=== PATIENT | male | born 1935 | race Caucasian/White ===

== ENCOUNTER 2016-12-15 16:44 | Emergency (ER) | payer OTHER, BC ==
[2016-12-15 16:57] VITALS: TEMP 97.5; BMI 28.2
[2016-12-15] MEDS ORDERED: HEMOQUE TEST 1 EACH EACH ONE (17:01)
[2016-12-15] MEDS ORDERED: SODIUM CHLORIDE 250 ML IV STA (17:12)
[2016-12-15 17:25] LABS: MCHC 32.8 g/dl (32.0-35.9); MEAN CELL VOLUME 82.5 fl (80-96); MEAN PLT VOLUME 8.3 fl (7.5-11.1); PLATELET COUNT 259 K/MM3 (134-434); RDW 14.4 % (11.9-15.9)
[2016-12-15 17:39] LABS: ALBUMIN 4.4 g/dl (3.5-5.0); BILIRUBIN,TOTAL 0.5 mg/dl (0.2-1.0); CALCIUM 9.9 mg/dl (8.4-10.2); CREATININE 1.3 mg/dl (0.6-1.3); TOT PROT 7.5 g/dl (6.4-8.3)
[2016-12-15 17:39] LABS: URINE APPEARANCE Clear; URINE BILIRUBIN Negative (NEGATIVE); URINE BLOOD Trace-intact (NEGATIVE); URINE GLUCOSE (UA) Negative (NEGATIVE); URINE KETONE Negative (NEGATIVE); URINE LEUK ESTERASE Negative (NEGATIVE); URINE NITRITE Negative (NEGATIVE); URINE PROTEIN Negative (NEGATIVE); URINE UROBILINOGEN 0.2 E.U/dl (0.2-1.0)
[2016-12-15 17:40] LABS: URINE COLOR YELLOW
--- NOTE | 2016-12-15 17:47 | PDOC ---
[id number] is an 81 year old male who presents to the ED complaining of lightheadedness and constipation for a few days. He states he feels lightheaded constantly when laying down and standing up. The patient states two weeks ago he had bronchitis and was given a Z pack from his PCP. He states he finished the antibiotics in five days on 12/07/16, and started to have a lot of diarrhea. His bronchitis had resolved. He reports his PCP informed him to take probiotics , which resolved the diarrhea. The patient reports he is now constipated and has had no relief with Miralex. The patient states he just does not feel well and presents to the ED for evaluation of his constipation and lightheadedness. The patient denies dysuria, frequency, hematuria The patient denies vomiting The patient denies fever, chest pain, SOB 12/15/16 18:48 <Autumn Strickland - Last Filed: 12/15/16 18:48> <Sabas Foley - Last Filed: 12/17/16 08:23> - General Chief Complaint: Lightheaded Stated Complaint: dizziness Time Seen by Provider: 12/15/16 16:53 Past History <Autumn Strickland - Last Filed: 12/15/16 18:48> - Past Medical History Anemia: No Asthma: No Cancer: No Cardiac Disorders: No CVA: No COPD: No CHF: No Dementia: No Diabetes: Yes GI Disorders: Yes (GERD OCCASIONALLY) Disorders: No HTN: Yes Hypercholesterolemia: No Liver Disease: No Seizures: No Thyroid Disease: No - Surgical History Abdominal Surgery: No Appendectomy: No Cardiac Surgery: No Cholecystectomy: No Lung Surgery: No Neurologic Surgery: No Orthopedic Surgery: No (RIGHT INDEX FINGER LACERATION WITH OSTEOMYLITIS) - Psycho/Social/Smoking Cessation Hx Anxiety: No Suicidal Ideation: No Smoking History: Never smoked Have you smoked in the past 12 months: No Information on smoking cessation initiated: No Hx Alcohol Use: No Drug/Substance Use Hx: No Substance Use Type: None Hx Substance Use Treatment: No <Sabas Foley - Last Filed: 12/17/16 08:23> - Past Medical History Allergies/Adverse Reactions: Allergies Allergy/AdvReac Type Severity Reaction Status Date / Time No Known Drug Allergies Allergy Verified 11/04/15 08:55 Home Medications: Ambulatory Orders Amlodipine Besylate [Norvasc -] 10 mg PO DAILY 10/09/13 Olmesartan/Hydrochlorothiazide [Benicar Hct 40-12.5 mg Tablet] 1 each PO DAILY 10/29/15 Lorazepam [Ativan] 0.5 mg PO TID PRN #20 tablet MDD 3 12/15/16 Simvastatin 0 mg PO DAILY 12/15/16 Review of Systems - Review of Systems Able to Perform ROS?: Yes Comments:: 12/15/16 17:52 CONSTITUTIONAL: Absent: fever, chills, diaphoresis, generalized weakness, malaise, loss of appetite HEENT: Absent: rhinorrhea, nasal congestion, throat pain, throat swelling, difficulty swallowing, mouth swelling, ear pain, eye pain, visual Changes CARDIOVASCULAR: Absent: chest pain, syncope, palpitations, irregular heart rate, lightheadedness , peripheral edema RESPIRATORY: Absent: cough, shortness of breath, dyspnea with exertion, orthopnea, wheezing, stridor, hemoptysis GASTROINTESTINAL: +Constipation. Absent: abdominal distension, nausea, vomiting, diarrhea, melena , hematochezia GENITOURINARY: Absent: dysuria, frequency, urgency, hesitancy, hematuria, flank pain, genital pain MUSCULOSKELETAL: Absent: myalgia, arthralgia, joint swelling SKIN: Absent: rash, itching, pallor NEUROLOGIC: +Lightheadedness. Absent: headache, focal weakness or paresthesias, unsteady gait, seizure, mental status changes, bladder or bowel incontinence PSYCHIATRIC: Absent: anxiety, depression, suicidal or homicidal ideation, hallucinations. <Autumn Strickland - Last Filed: 12/15/16 18:48> *Physical Exam - Vital Signs Last Vital Signs Temp Pulse Resp BP Pulse Ox 97.5 F L 100 H 20 158/82 100 12/15/16 16:53 12/15/16 16:53 12/15/16 16:53 12/15/16 16:53 12/15/16 16:53 <Autumn Strickland - Last Filed: 12/15/16 18:48> - Vital Signs Last Vital Signs Temp Pulse Resp BP Pulse Ox 97.5 F L 100 H 20 158/82 100 12/15/16 16:53 12/15/16 16:53 12/15/16 16:53 12/15/16 16:53 12/15/16 16:53 <Sabas Foley - Last Filed: 12/17/16 08:23> ED Treatment Course - LABORATORY CBC & Chemistry Diagram: 12/15/16 17:16 12/15/16 17:16 - ADDITIONAL ORDERS Additional order review: Laboratory Results 12/15/16 12/15/16 17:21 17:16 Sodium 138 Potassium 4.1 Chloride 99 Carbon Dioxide 26 Anion Gap 13 BUN 27 H Creatinine 1.3 Creat Clearance w eGFR 53.12 Random Glucose 113 H Calcium 9.9 Total Bilirubin 0.5 AST 28 ALT 22 Alkaline Phosphatase 62 Total Protein 7.5 Albumin 4.4 Urine Color Yellow Urine Appearance Clear Urine pH 7.0 Ur Specific [place] 1.015 Urine Protein Negative Urine Glucose (UA) Negative Urine Ketones Negative Urine Blood Trace-intact Urine Nitrite Negative Urine Bilirubin Negative Urine Urobilinogen 0.2 e.u/dl Ur Leukocyte Esterase Negative 12/15/16 17:16 RBC 4.90 MCV 82.5 MCHC 32.8 RDW 14.4 MPV 8.3 Neutrophils % 53.7 Lymphocytes % 34.5 Monocytes % 10.6 H Eosinophils % 0.7 Basophils % 0.5 - Medications Given in the ED: ED Medications Discontinued Medications Generic Name Dose Route Start Last Admin Trade Name Mario PRN Reason Stop Dose Admin Sodium Chloride 250 mls @ 500 mls/hr 12/15/16 17:12 12/15/16 17:25 Normal Saline - IV 12/15/16 17:41 500 mls/hr ASDIR STA Administration <Autumn Strickland - Last Filed: 12/15/16 18:48> - LABORATORY CBC & Chemistry Diagram: 12/15/16 17:16 12/15/16 17:16 - ADDITIONAL ORDERS Additional order review: Laboratory Results 12/15/16 17:21 Urine Color Yellow Urine Appearance Clear Urine pH 7.0 Ur Specific [place] 1.015 Urine Protein Negative Urine Glucose (UA) Negative Urine Ketones Negative Urine Blood Trace-intact Urine Nitrite Negative Urine Bilirubin Negative Urine Urobilinogen 0.2 e.u/dl Ur Leukocyte Esterase Negative 12/15/16 17:16 RBC 4.90 MCV 82.5 MCHC 32.8 RDW 14.4 MPV 8.3 Neutrophils % 53.7 Lymphocytes % 34.5 Monocytes % 10.6 H Eosinophils % 0.7 Basophils % 0.5 - RADIOLOGY Radiology Studies Ordered: Category Date Time Status CHEST X-RAY PORTABLE* [RAD] Stat Radiology 12/15/16 17:10 Taken <Sabas Foley - Last Filed: 12/17/16 08:23> Medical Decision Making - Medical Decision Making 12/15/16 17:55 Physical exam: Alert and oriented well-developed and well-nourished no acute distress cooperative. However, appears extremely anxious and admits feeling nervous and shaky frequently, without any nonstress or anxiety precipitating factors of which she is aware Afebrile, vital signs normal No pallor or icterus. PERRLA, fundi benign, ENT clear Neck supple without bruit mass or nodes Chest clear to P&A with full breath sounds throughout bilaterally. No wheezes rales or rhonchi CV S1 and S2 distant without murmur rub or gallop pulses full and symmetric no JVD or edema no bruits Abdomen mildly distended, normal bowel sounds, soft without mass tenderness organomegaly. No CVAT exam testes descended bilaterally, without mass or tenderness, no urethral discharge, no hernias Rectal exam: No masses or tenderness. Prostate 2+ enlarged, firm, nontender, without nodules. Small amount of light brown stool in the ampulla, sent for guaiac analysis Neurological C2 to 12 intact. Strength full and symmetric. No focal sensory or motor deficits. Gait stable and unimpaired Extremities no CCE Skin clear, no rash, adequate turgor and what mucous membranes Impression: The patient symptoms are extremely vague, upon detailed questioning there is no vertigo, dizziness, or true lightheadedness, with the patient seemingly using these terms to try to describe just not feeling well. In particular, he denies any orthostatic component, denies any unsteadiness on his feet, denies the room spinning or dizziness with head movement or sudden change in body position. It seems that his multiple, poorly categorized symptoms, including insomnia and nervousness when trying to sleep, may all be due to anxiety. He appears physically well Plan: EKG and enzymes to check for occult cardiac disease, CBC and chemistries, urinalysis to rule out occult infection, further evaluation depending on results. Consider a trial of low-dose anxiolytic if medical evaluation proves unrevealing. 12/15/16 18:26 Chest x-ray: Clear EKG: Normal sinus rhythm 80/m normal axes and intervals. 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 No acute ST elevations or depressions which would signify acute ischemia. CBC and chemistries, as well as cardiac enzymes, were normal. Of note was a glucose of 113 despite not taking his metformin today. 12/15/16 19:34 Patient feels much better after administration of anxiolytic. He states that he is more relaxed and not shaking any more. However, he is complaining about his stomach "growling" but denies any maritza pain. 12/17/16 08:23 <Sabas Foley - Last Filed: 12/17/16 08:23> *DC/Admit/Observation/Transfer - Attestations Scribe Attestion: 12/15/16 17:52 Documentation prepared by Autumn Strickland, acting as medical doctor nuclear medicine for Sabas Mcqueen MD/DO. <Autumn Strickland - Last Filed: 12/15/16 18:48> <Sabas Foley - Last Filed: 12/17/16 08:23> Diagnosis at time of Disposition: Irritable bowel syndrome Qualifiers: Irritable bowel syndrome type: with constipation Qualified Code(s): K58.9 - Irritable bowel syndrome without diarrhea - Discharge Dispostion Disposition: HOME Condition at time of disposition: Stable - Prescriptions Prescriptions: Lorazepam [Ativan] 0.5 mg PO TID PRN #20 tablet MDD 3 PRN Reason: nervousness, sleeplessness - Patient Instructions Printed Discharge Instructions: DI for Irritable Bowel Syndrome Additional Instructions: MiraLAX, probiotic as directed Follow-up with your primary physician Dr. Vanessa See Dr. Hua as scheduled
[2016-12-15] MEDS ORDERED: LORazepam 0.5 MG TABLET PO ONE (18:03)
[2016-12-15] MEDS ORDERED: LORazepam 0.5 MG TABLET ONE (18:09)
[2016-12-15 18:15] LABS: CPK(DFH) 120 IU/L (38-174)
[2016-12-15 18:29] LABS: TROPONIN I (DFP) < 0.03 ng/ml (0.03-0.50)
[2016-12-15] MEDS ORDERED: PANTOPRAZOLE SODIUM 40 MG in SODIUM CHLORIDE 100 ML IVPB ONE (19:32)
[2016-12-15] MEDS ORDERED: HYOSCYAMINE SULFATE 0.125 MG *ODT PO ONE (19:33)
[2016-12-15] MEDS ORDERED: MAG HYDROX/AL HYDROX/SIMETH 30 ML UNIT-DOSE CUP PO ONE (19:33)
[2016-12-15] MEDS ORDERED: PANTOPRAZOLE SODIUM 40 MG VIAL ONE (19:36)
[2016-12-15] MEDS ORDERED: MAG HYDROX/AL HYDROX/SIMETH 30 ML UNIT-DOSE CUP ONE (19:36)
[2016-12-15] MEDS ORDERED: HYOSCYAMINE SULFATE 0.125 MG *ODT ONE (19:36)
[2016-12-15 20:19] VITALS: BP 130/77; PULSE 85
--- NOTE | 2016-12-16 13:46 | EKG ---
Test Reason : Blood Pressure : / mmHG Vent. Rate : 080 BPM Atrial Rate : 080 BPM P-R Int : 182 ms QRS Dur : 082 ms QT Int : 384 ms P-R-T Axes : 079 004 044 degrees QTc Int : 442 ms SINUS RHYTHM POSSIBLE LEFT ATRIAL ENLARGEMENT NO PREVIOUS ECGS AVAILABLE Confirmed by PATTI GARCIA MD ([id number]) on 12/16/2016 1:46:29 PM Referred By: DR SANCHEZ Confirmed By:PATTI GARCIA MD
== END 2016-12-15 20:23 | disposition home or self-care (01) ==
LOC: FER 16:44
PROC: 3E023GC Introduction of Other Therapeutic Substance into Muscle, Percutaneous Approach (ICD-10-PCS; principal; 2016-12-15)
PROC: 3E0337Z Introduction of Electrolytic and Water Balance Substance into Peripheral Vein, Percutaneous Approach (ICD-10-PCS; 2016-12-15)
DX: K58.9 Irritable bowel syndrome, unspecified (principal); K21.9 Gastro-esophageal reflux disease without esophagitis; I10 Essential (primary) hypertension
CPT/HCPCS: 36415; 70450-TC; 71010-TC; 80053; 81003; 82272; 82550; 84484; 85025; 93005; 96361; 96365; 99283-25

== ENCOUNTER 2018-08-11 08:39 | Inpatient (IN) | payer OTHER, BC ==
[2018-08-02 10:54] VITALS: BMI 28.3
--- NOTE | 2018-08-11 07:45 | HP ---
Admitting History and Physical - Admission Chief Complaint: Right hip osteoarthritis x years History of Present Illness: 82 year old male presents today in regard to his right hip. Longstanding history of right hip osteoarthritis. Patient complains of pain, limited ROM, difficulty ambulating and difficulty with ADLs. Patient has failed conservative treatment measures including PO medications, activity modification, injections and exercise program. At this point, patient would like to proceed with surgical intervention - right total hip arthroplasty, MAKOplasty. History Source: Patient - Past Medical History Cardiovascular: Yes: HTN Endocrine: Yes: Diabetes Mellitus - Smoking History Smoking history: Never smoked Have you smoked in the past 12 months: No - Alcohol/Substance Use Hx Alcohol Use: No Home Medications - Allergies Allergies/Adverse Reactions: Allergies Allergy/AdvReac Type Severity Reaction Status Date / Time No Known Drug Allergies Allergy Verified 11/04/15 08:55 - Home Medications Home Medications: Ambulatory Orders Amlodipine Besylate [Norvasc -] 10 mg PO DAILY 10/09/13 Olmesartan/Hydrochlorothiazide [Benicar Hct 40-12.5 mg Tablet] 1 each PO DAILY 10/29/15 Metformin HCl [Metformin HCl ER] 500 mg PO HS 08/02/18 Review of Systems - Review of Systems Musculoskeletal: reports: Decreased ROM (right hip), Joint Pain (right hip) Physical Examination Constitutional: Yes: Well Nourished, No Distress Eyes: Yes: Conjunctiva Clear HENT: Yes: Atraumatic, Normocephalic Neck: Yes: Supple Cardiovascular: Yes: Regular Rate and Rhythm Respiratory: Yes: Regular Gastrointestinal: Yes: Soft ...Rectal Exam: Yes: Deferred Musculoskeletal: Yes: Joint Stiffness (right hip) Assessment/Plan 82 year old male presents today in regard to his right hip. Longstanding history of right hip osteoarthritis. Patient complains of pain, limited ROM, difficulty ambulating and difficulty with ADLs. Patient has failed conservative treatment measures including PO medications, activity modification, injections and exercise program. At this point, patient would like to proceed with surgical intervention - right total hip arthroplasty, MAKOplasty. Pros, cons, risks, benefits and alternatives of a right total hip arthoplasty - MAKOplasty were discussed with the patient at length. Patient confirms his understanding and consents to proceed with a right total hip arthroplasty, MAKOplasty.
[~2018-08-11 08:39] MED LIST: CEFAZOLIN 2 GM in DEXTROSE 5%-WATER - 50 ML IVPB ONE; ROPIVICAINE 0.2%/MORPH PF/KETOROLAC - 51ML DISP.SYRINGE IA ONE; TRANEXAMIC ACID 1000 MG/10 ML VIAL IVPUSH ONE
[2018-08-11] MEDS ORDERED: CELECOXIB 200 MG CAPSULE ONE (09:29)
[2018-08-11] MEDS ORDERED: GABAPENTIN 300 MG CAPSULE (FP) ONE (09:29)
[2018-08-11] MEDS ORDERED: oxyCODONE HCL 10 MG SUSTAINED ACTING TABLET ONE (09:29)
[2018-08-11] MEDS ORDERED: PANTOPRAZOLE 40 MG TABLET (FP) ONE (09:29)
[2018-08-11] MEDS: GABAPENTIN 300 MG CAPSULE (FP) PO ONE (09:47)
[2018-08-11] MEDS: PANTOPRAZOLE 40 MG TABLET (FP) PO ONE (09:47)
[2018-08-11] MEDS: oxyCODONE HCL 10 MG SUSTAINED ACTING TABLET PO ONE (09:47)
[2018-08-11] MEDS: CELECOXIB 200 MG CAPSULE PO ONE (09:47)
[2018-08-11] MEDS ORDERED: DEXAMETHASONE SOD PHOSPHATE/PF 10 MG/ML SDV ONE (10:08)
[2018-08-11] MEDS ORDERED: MIDAZOLAM HCL 2 MG/2 ML SINGLE DOSE VIAL ONE (10:08)
[2018-08-11] MEDS ORDERED: BUPIVACAINE HCL/PF (5 MG/ML) 30 ML VIAL IJ ONE (10:08)
[2018-08-11] MEDS ORDERED: LIDOCAINE 1% P/F 10 MG/ML VIAL ONE (10:09)
[2018-08-11] MEDS ORDERED: ceFAZolin SODIUM 1 GM VIAL ONE ×2 (11:00→11:23)
[2018-08-11] MEDS ORDERED: ePHEDrine SULFATE 50 MG/1 ML AMPULE ONE ×2 (11:04→12:51)
[2018-08-11] MEDS ORDERED: PHENYLEPHRINE HCL 10 MG/1 ML SINGLE DOSE VIAL ONE (11:04)
[2018-08-11] MEDS ORDERED: PROPOFOL 20 ML ONE ×2 (11:04→13:55)
[2018-08-11] MEDS ORDERED: SUCCINYLCHOLINE CHLORIDE 200 MG/10 ML VIAL ONE (11:04)
[2018-08-11] MEDS ORDERED: SODIUM CHLORIDE 0.9% P/F 10 ML VIAL IJ ONE (11:06)
[2018-08-11] MEDS ORDERED: TRANEXAMIC ACID 1000 MG/10 ML VIAL ONE ×2 (11:09→11:23)
[2018-08-11] MEDS ORDERED: DEXAMETHASONE SOD PHOSPHATE 4 MG/1 ML VIAL ONE (11:23)
[2018-08-11] MEDS ORDERED: ONDANSETRON 4 MG/2 ML VIAL ONE (11:23)
[2018-08-11] MEDS ORDERED: ALBUTEROL SO4 8 GM HFA INHALER IH ONE (14:51)
[2018-08-11] MEDS ORDERED: oxyCODONE HCL 5 MG TABLET PO PRN ×2 (15:36)
--- NOTE | 2018-08-11 16:09 | OP ---
Operative Note - Note: Operative Date: 08/11/18 Pre-Operative Diagnosis: right hip OA Operation: right ALICE JURGEN Post-Operative Diagnosis: Same as Pre-op Surgeon: Macho Batres [facility] Adviser: Kellen Minor Anesthesia: Spinal Estimated Blood Loss (mls): 200
[2018-08-11] MEDS ORDERED: ONDANSETRON 4 MG/2 ML VIAL IVPUSH PRN (16:11)
[2018-08-11] MEDS ORDERED: MAGNESIUM HYDROX 2400MG/30ML ORAL SUSPENSION 30 ML CUP PO PRN (16:11)
[2018-08-11] MEDS ORDERED: MAG HYDROX/AL HYDROX/SIMETH 30 ML UNIT-DOSE CUP PO PRN (16:11)
[2018-08-11] MEDS ORDERED: ACETAMINOPHEN 1000 MG/100 ML VIAL (NON FORMULARY) IVPB ONE (16:13)
[2018-08-11] MEDS ORDERED: LACTATED RINGERS SOLUTION 1,000 ML IV SCH (16:15)
[2018-08-11] MEDS: KETOROLAC TROMETHAMINE 30 MG/1 ML VIAL IVPUSH SCH ×2 (16:18→23:48)
[2018-08-11] MEDS: traMADol HCL 50 MG TABLET PO SCH ×2 (16:22→23:47)
--- NOTE | 2018-08-11 17:10 | SPEC ---
DATE OF OPERATION: 08/11/2018 PREOPERATIVE DIAGNOSIS: Right hip osteoarthritis. POSTOPERATIVE DIAGNOSIS: Right hip osteoarthritis. PROCEDURE: Right total hip replacement with Makoplasty robotic navigation. ATTENDING: Macho Batres M.D. [employer] SUPERVISOR: Aristides Garcia ANESTHESIA: Spinal plus sedation. ESTIMATED BLOOD LOSS: 200 mL. COMPLICATIONS: None. DISPOSITION: The patient was transferred to the PACU in stable condition. IMPLANTS USED: Matthew Accolade II size 7 femoral components, Matthew titanium 56-mm acetabular component with 20 and 30 mm acetabular screws, MDM bipolar head ball and liner. INDICATION: This is an 82-year-old male who presents to the office complaining of severe right hip pain. He was seen and examined by Dr. Batres and diagnosed with severe right hip osteoarthritis. The patient was initially treated nonoperatively with injections, medications and physical therapy but continued to have severe pain and ambulatory dysfunction. He was therefore indicated for a right total hip replacement. The risks, benefits, and alternatives to the procedure were explained to the patient in great detail, and he elected to proceed with the surgery. On the day of surgery, the patient was taken to the operating room and placed on the OR table. Spinal anesthesia was administered by the anesthesiologist. The patient was then positioned in the lateral decubitus position on the table and all bony prominences were padded. An axillary roll was placed. The operative hip was then prepped and draped in the usual sterile fashion and intravenous antibiotics were given for infection prophylaxis. A surgical time-out was then performed with the team, and the patients identity, procedure, side, availability of implants, and the administration of antibiotics were confirmed. An approximately 15-cm longitudinal incision was made through the skin centered on the greater trochanter of the hip. This dissection was carried down through the subcutaneous tissues to the deep fascia. This fascia was then incised and a Cobra was placed around the inferior femoral neck. Electrocautery was used to reflect the anterior 40% of the gluteus medius and minimus starting at the musculotendinous junction and leaving a cuff for closure. This was reflected to reveal the capsule of the hip joint. An anterior capsulectomy was performed and the femoral head and neck were visualized. Grade 4 changes were noted diffusely throughout the joint. At this point, three small stab incisions were made superior to the main incision along the iliac crest. Three self-drilling Steinmann pins were then placed and the [employer] pelvic array was attached. Reference points on the limb were then entered into the robotic device and the limb length deficiency, offset, and femoral neck resection level were then calculated by the software. The hip was then dislocated with traction and external rotation. An oscillating saw was used to make the femoral neck cut at the level previously templated, and the femoral head was removed. Attention was then turned to the acetabulum. Retractors were then placed around the acetabulum and the labrum was removed. An acetabular checkpoint pin and the [employer] software were used to register the contours of the acetabulum. The acetabulum was then reamed in a single stage to the preoperatively templated size using the Klaus robotic arm. The appropriately sized cup was then impacted and had solid fixation as well as the preset inclination and version of 40 and 20 degrees, respectively. A polyethylene liner was then placed in the cup. Attention was then turned back to the femur, which was externally rotated for improved visualization. A femoral neck elevator was used to present the femoral neck cut, a box osteotome was used to enter the femoral canal, and a canal finder was used to go down the femoral shaft. The Klaus broaches were used sequentially until the optimal scratch fit was achieved. This correlated with the preoperatively templated size. From here, several different offset head and neck configurations were tested until excellent stability and length were obtained. These measurements were quantified using the [employer] software. All trial components were then removed, the femur was copiously irrigated, and the final components were placed. Leg length and stability were checked again and found to be excellent. Irrigation was performed again. Wound closure was started by repairing the abductor muscles with a no. 2 FiberWire stitch in a Krackow configuration passed through bone tunnels in the greater trochanter and tied over a bony bridge. This repair was then reinforced with a 0 V-Loc 180 barbed suture. Next, no. 1 Polysorb and 0 V-Loc 180 were used to close the fascia. The deep subcutaneous tissue was closed with no. 1 Polysorb sutures, and 2-0 Polysorb was used for the superficial subcutaneous tissue. The skin was closed using both 3-0 V-Loc 90 suture in a running subcuticular fashion and SwiftSet skin adhesive. The Klaus array and pins were removed from the iliac crest and the stab incision sites were irrigated and closed with 4-0 Polysorb sutures and SwiftSet skin adhesive. Once this was completed, a sterile dressing was applied. The patient was then awakened and taken to the PACU in stable condition. ADDENDUM: After final implants were placed, a 3-minute dilute Betadine lavage was performed. Following this, the wound was thoroughly irrigated with normal saline via pulsatile lavage and wound closure was begun. James ANDERSON/[id number]
[2018-08-11] MEDS: CEFAZOLIN 2 GM/D5W 2 GM/50 ML ML IVPB SCH (18:45)
[2018-08-11] MEDS: GABAPENTIN 300 MG CAPSULE (FP) PO SCH (21:14)
[2018-08-11] MEDS: ASCORBIC ACID 500 MG TABLET (FP) PO SCH (21:14)
[2018-08-11] MEDS: SENNOSIDES/DOCUSATE COMBO (SENNA PLUS) TABLET (UD) PO SCH (21:14)
[2018-08-11] MEDS: CELECOXIB 200 MG CAPSULE PO SCH (21:14)
[2018-08-11] MEDS ORDERED: KETOROLAC TROMETHAMINE 30 MG/1 ML VIAL ONE (23:44)
[2018-08-11] MEDS: ACETAMINOPHEN 325 MG TABLET (FP) PO SCH (23:48)
[2018-08-12] MEDS ORDERED: DEXAMETHASONE SOD PHOSPHATE 10 MG/1 ML VIAL IVPB ONE (01:00)
[2018-08-12] MEDS: CEFAZOLIN 2 GM/D5W 2 GM/50 ML ML IVPB SCH ×2 (01:22→09:49)
[2018-08-12] MEDS ORDERED: KETOROLAC TROMETHAMINE 30 MG/1 ML VIAL ONE (06:30)
[2018-08-12] MEDS: ACETAMINOPHEN 325 MG TABLET (FP) PO SCH ×3 (06:33→17:12)
[2018-08-12] MEDS: traMADol HCL 50 MG TABLET PO SCH ×3 (06:34→17:11)
[2018-08-12] MEDS: KETOROLAC TROMETHAMINE 30 MG/1 ML VIAL IVPUSH SCH ×3 (06:34→17:13)
[2018-08-12] MEDS: PANTOPRAZOLE 40 MG TABLET (FP) PO ONE (07:49)
[2018-08-12] MEDS: GABAPENTIN 300 MG CAPSULE (FP) PO ONE (07:50)
[2018-08-12] MEDS: CELECOXIB 200 MG CAPSULE PO ONE (07:50)
[2018-08-12] MEDS: oxyCODONE HCL 10 MG SUSTAINED ACTING TABLET PO ONE (07:50)
[2018-08-12 07:56] LABS: HEMATOCRIT 35.9 % (35.4-49); MCH 29.4 pg (25.7-33.7); MCHC 33.5 g/dl (32.0-35.9); MEAN CELL VOLUME 87.9 fl (80-96); MEAN PLT VOLUME 9.3 fl (7.5-11.1); PLATELET COUNT 172 K/MM3 (134-434); RBC 4.09 M/mm3 (4.00-5.60); RDW 14.2 % (11.9-15.9); WHITE BLOOD COUNT 9.9 K/mm3 (4.0-10.8)
[2018-08-12 08:13] LABS: ANION GAP 14 MMOL/L (8-16); BLOOD UREA NITROGEN 36 mg/dl (7-18); CALCIUM 8.4 mg/dl (8.4-10.2); CHLORIDE 95 mmol/L (98-107); CO2 20 mmol/L (22-28); GLUCOSE,RANDOM 278 mg/dl (74-106); POTASSIUM 4.5 mmol/L (3.5-5.1); SODIUM 129 mmol/L (136-145)
[2018-08-12] MEDS: ASPIRIN 325 MG TABLET PO SCH (08:14)
--- NOTE | 2018-08-12 09:40 | PN ---
Progress Note (short form) - Note Progress Note: Post op day#1.S/P right total hip replacement under spinal anesthesia with L2 paravertebral block uneventful.Patient stable and does not c/o pain.No any anesthesia related problem.Patient Dc from the anesthesia care.
[2018-08-12] MEDS: PANTOPRAZOLE 40 MG TABLET (FP) PO SCH (09:45)
[2018-08-12] MEDS: CELECOXIB 200 MG CAPSULE PO SCH (09:45)
[2018-08-12] MEDS: VALSARTAN 160 MG TABLET (UD) PO SCH (09:45)
[2018-08-12] MEDS: MULTIVITAMINS (DAILY MVI) TABLET (FP) PO SCH (09:45)
[2018-08-12] MEDS: amLODIPine BESYLATE 10 MG TABLET (FP) PO SCH (09:45)
[2018-08-12] MEDS: GABAPENTIN 300 MG CAPSULE (FP) PO SCH ×2 (09:45→21:10)
[2018-08-12] MEDS: ASCORBIC ACID 500 MG TABLET (FP) PO SCH ×2 (09:45→21:10)
[2018-08-12] MEDS: HYDROCHLOROTHIAZIDE 12.5 MG CAPSULE (FP) PO SCH (09:45)
[2018-08-12] MEDS: SENNOSIDES/DOCUSATE COMBO (SENNA PLUS) TABLET (UD) PO SCH ×2 (09:46→21:10)
[2018-08-12] MEDS ORDERED: PATIENT'S OWN MEDICATION (NON-FORMULARY) (Olmesartan/Hydrochlorothiazide [Benicar Hct 40-1 PO SCH (10:00)
[2018-08-13] MEDS: traMADol HCL 50 MG TABLET PO SCH ×3 (00:28→12:00)
[2018-08-13] MEDS: ACETAMINOPHEN 325 MG TABLET (FP) PO SCH ×3 (00:28→12:05)
[2018-08-13 06:54] VITALS: BP 150/78; PULSE 80; TEMP 98.2
[2018-08-13] MEDS: ASPIRIN 325 MG TABLET PO SCH (07:55)
[2018-08-13 08:27] LABS: HEMATOCRIT 33.1 % (35.4-49); HEMOGLOBIN 11.3 GM/dl (11.7-16.9); MCH 29.3 pg (25.7-33.7); MCHC 34.2 g/dl (32.0-35.9); MEAN CELL VOLUME 85.7 fl (80-96); MEAN PLT VOLUME 9.3 fl (7.5-11.1); PLATELET COUNT 157 K/MM3 (134-434); RBC 3.86 M/mm3 (4.00-5.60); RDW 14.3 % (11.9-15.9); WHITE BLOOD COUNT 11.9 K/mm3 (4.0-10.8)
--- NOTE | 2018-08-13 09:22 | PN ---
Progress Note (short form) - Note Progress Note: Pt seen and examined last evening. Doing very well. Walked 530+ feet and up/ down stairs. No c/o pain. AVSS Selected Entries 08/12/18 08/13/18 22:36 06:53 Temperature 97.7 F 98.2 F Pulse Rate 71 80 Respiratory 18 18 Rate Blood Pressure 131/68 150/78 O2 Sat by Pulse 96 Oximetry (%) Oxygen Delivery Room Air Method Laboratory Tests 08/12/18 08/12/18 08/13/18 07:15 07:15 07:10 WBC 9.9 11.9 H Hgb 12.0 11.3 L Hct 35.9 D 33.1 L Plt Count 172 D 157 Sodium 129 L Potassium 4.5 Chloride 95 L Carbon Dioxide 20 L D Anion Gap 14 BUN 36 H Creatinine 2.0 H Creat Clearance w eGFR 32.23 Random Glucose 278 H D Calcium 8.4 Gen: NAD RLE: c/d/i, NVID A/P s/p R JURGEN PT/OOB D/C home today
--- NOTE | 2018-08-13 09:34 | DS ---
Physical Examination Vital Signs: Vital Signs Temperature 98.2 F 08/13/18 06:53 Pulse Rate 80 08/13/18 06:53 Respiratory Rate 18 08/13/18 06:53 Blood Pressure 150/78 08/13/18 06:53 O2 Sat by Pulse Oximetry (%) 96 08/13/18 06:53 Labs: CBC, BMP 08/13/18 07:10 08/12/18 07:15 Discharge Summary Reason For Visit: OSTEOARTHRITIS RIGHT HIP Current Active Problems Osteoarthritis of right hip (Acute) Procedures: Principal: right ALICE JURGEN Hospital Course: Admitted for elective surgery. Procedure performed without complications. Pt received postoperative antibiotic prophylaxis and DVT ppx. Ambulated with physical therapy. Stable for discharge home with outpatient followup. Condition: Stable - Instructions Diet, Activity, Other Instructions: Dr Batres - Hip Replacement Instructions Keep the Aquacel dressing on until removed by Dr. Batres in 10-14 days - it is antibacterial and waterproof and you can shower with it on. Call the office for a follow-up appointment with Dr. Batres in 10-14 days. Take one Aspirin 325mg daily for 6 weeks to prevent blood clots in your legs. Take one Pantoprazole 40mg daily for 6 weeks to protect against heartburn and ulcers. Take Cephalexin (antibiotic) 3x/day for 10 days to help prevent skin infection. Take a multivitamin, stool softener and extra Vitamin C supplement daily. For pain: *Mild pain (1-3/10): Take 1 Tramadol tablet every 4 hours as needed. Moderate pain (4-6/10): Take 1 Tramadol tablet and 1 Percocet tablet every 4 hours as needed. Severe pain (7-10/10): Take 1 Tramadol tablet and 2 Percocet tablets every 4 hours as needed. Activity: You can put as much weight on the operative leg as you want. For the first 6 weeks, all you need to do is walk around the house, go up/down stairs, and sit down/get up. After 6 weeks when everything is healed (and bone has grown into the implant) you will be sent for more intensive outpatient physical therapy. Always use a walker or cane for balance and to prevent falls. Expect to see swelling / bruising from the operative site all the way down to your toes. Wear the Compression stocking on the operative side during the day to minimize how much swelling there is in your foot/ankle. Don't wear the stocking at night. You don't have to wear the stocking on the other side. Disposition: VNS/HOME HEALTH CARE - Home Medications Comprehensive Discharge Medication List: Ambulatory Orders Amlodipine Besylate [Norvasc -] 10 mg PO DAILY 10/09/13 Olmesartan/Hydrochlorothiazide [Benicar Hct 40-12.5 mg Tablet] 1 each PO DAILY 10/29/15 Metformin HCl [Metformin HCl ER] 500 mg PO HS 08/02/18 Ascorbic Acid [Vitamin C -] 500 mg PO BID tablet 08/13/18 Aspirin [ASA -] 325 mg PO DAILY@0800 tablet 08/13/18 Cephalexin Monohydrate [Keflex -] 500 mg PO TID #30 capsule 08/13/18 Multivitamins [Multivit ([facility] Formulary)] 1 tab PO DAILY tab 08/13/18 Oxycodone HCl/Acetaminophen [Percocet 5-325 mg Tablet] 1 - 2 tab PO Q4H PRN #60 tablet MDD 10 08/13/18 Pantoprazole Sodium [Protonix -] 40 mg PO DAILY #40 tablet.ec 08/13/18 Sennosides/Docusate Sodium [Pericolace -] 2 tablet PO BID tablet 08/13/18 traMADol HCL [Ultram -] 50 mg PO Q4H PRN #42 tablet MDD 6 08/13/18
[2018-08-13] MEDS: amLODIPine BESYLATE 10 MG TABLET (FP) PO SCH (10:12)
[2018-08-13] MEDS: ASCORBIC ACID 500 MG TABLET (FP) PO SCH (10:12)
[2018-08-13] MEDS: SENNOSIDES/DOCUSATE COMBO (SENNA PLUS) TABLET (UD) PO SCH (10:12)
[2018-08-13] MEDS: VALSARTAN 160 MG TABLET (UD) PO SCH (10:12)
[2018-08-13] MEDS: GABAPENTIN 300 MG CAPSULE (FP) PO SCH (10:13)
[2018-08-13] MEDS: HYDROCHLOROTHIAZIDE 12.5 MG CAPSULE (FP) PO SCH (10:13)
[2018-08-13] MEDS: PANTOPRAZOLE 40 MG TABLET (FP) PO SCH (10:13)
[2018-08-13] MEDS: MULTIVITAMINS (DAILY MVI) TABLET (FP) PO SCH (10:13)
--- NOTE | 2018-08-15 12:22 | PATH ---
Surgical Pathology Report Patient Name: ANGELI RAMESH Med. Rec. #: [id number] /Age/Gender: 1935 (Age: 82) / M Account: [id number] Location: [facility] MED-SURG Taken: 08/11/2018 Received: 08/12/2018 Reported: 08/15/2018 Physicians: Macho Batres M.D. Specimen(s) Received RIGHT FEMORAL HEAD Clinical History Right hip osteoarthritis Final Diagnosis BONE, FEMORAL HEAD, RIGHT, TOTAL HIP REPLACEMENT: BONE WITH DEGENERATIVE JOINT DISEASE. Electronically Signed Roxana Boss M.D. Gross Description Received in formalin, labeled "right femoral head," is a 4.8 x 4.8 x 4.3 cm. femoral head with a 1.5 cm in length portion of femoral neck attached. The margin of resection is smooth. There is a 4.4 cm greatest dimension area of eburnation present. The remaining articular surface is conti-yellow and focally granular. The underlying trabecular bone is yellow and hard. A advertising sales representative section is submitted in one cassette, following decalcification. 08/12/2018 saudi08/12/2018
== END 2018-08-13 14:14 | disposition home health service (06) | DRG 470 ==
LOC: FM/S 08:39
PROVIDERS: ADMIT Student in an Organized Health Care Education/Training Program; ATTEND Student in an Organized Health Care Education/Training Program
PROC: 8E0W0CZ Robotic Assisted Procedure of Trunk Region, Open Approach (ICD-10-PCS; 2018-08-11)
PROC: 0SR90JA Replacement of Right Hip Joint with Synthetic Substitute, Uncemented, Open Approach (ICD-10-PCS; principal; 2018-08-11 13:19)
DX: M16.11 Unilateral primary osteoarthritis, right hip (principal); E11.9 Type 2 diabetes mellitus without complications; I10 Essential (primary) hypertension
CPT/HCPCS: 36415; 73502-TC-RT; 73700-TC-RT; 80048; 85027; 88305-TC; 88311-TC; 94760; 97116-GP; 97162-GP; J0131; J1100

== ENCOUNTER 2020-07-03 06:18 | Day surgery (SDC) | payer OTHER, BC ==
[2020-06-26 14:01] VITALS: BMI 29.0
[2020-07-03] MEDS ORDERED: DEXAMETHASONE SOD PHOSPHATE 4 MG/1 ML VIAL ONE (09:15)
[2020-07-03] MEDS ORDERED: PROPOFOL 20 ML ONE (09:15)
[2020-07-03] MEDS ORDERED: MIDAZOLAM HCL 2 MG/2 ML SINGLE DOSE VIAL ONE (09:15)
[2020-07-03] MEDS ORDERED: ONDANSETRON 4 MG/2 ML VIAL ONE (09:15)
[2020-07-03] MEDS ORDERED: LIDOCAINE HCL 2% (50ML VIAL) INF ONE (09:23)
[2020-07-03 09:46] VITALS: TEMP 97.8
--- NOTE | 2020-07-03 09:59 | OP ---
DATE OF OPERATION: 07/03/2020 PREOPERATIVE DIAGNOSIS: Left carpal tunnel syndrome. POSTOPERATIVE DIAGNOSIS: Left carpal tunnel syndrome. OPERATIVE PROCEDURE: Left carpal tunnel release. ANESTHESIA: Local with sedation. COMPLICATIONS: None. ESTIMATED BLOOD LOSS: Minimal. INDICATIONS FOR PROCEDURE: The patient presented with the above finding, indicated for operative treatment. Risks, benefits and alternatives were discussed with him at length. Proper informed consent was obtained. PROCEDURE: After proper identification of patient and correct operative site, patient was brought to the operating room, placed supine on the table, prominences well padded. Sedation and local anesthesia were given. Left upper extremity was prepped and draped in the usual sterile fashion. Well-padded tourniquet was placed as well as a sterile prep. Esmarch bandage was used to exsanguinate the left upper extremity. Tourniquet was inflated to 250 mmHg. Longitudinal incision was made in the proximal aspect of the palm. Incision was taken sharply through the skin with blunt and sharp dissection through the subcutaneous tissue. Palmar fascia was divided longitudinally. Transcarpal ligament was divided longitudinally along with the distal 4 cm of the antebrachial fascia under direct visualization with loupe magnification. This provided complete release of the median nerve at the wrist. Wound was irrigated and repaired with 5-0 fast-absorbing plain gut suture. Sterile dressings were applied. Patient was brought to recovery in stable condition. He tolerated the procedure well. PAYTON RIVERA M.D. [id number]
[2020-07-03 10:19] VITALS: BP 142/66; PULSE 58
[2020-07-03] MEDS ORDERED: ONDANSETRON 4 MG/2 ML VIAL IVPUSH PRN (12:31)
[2020-07-03] MEDS ORDERED: ACETAMINOPHEN 325 MG TABLET (FP) PO PRN (12:31)
[2020-07-03] MEDS ORDERED: oxyCODONE HCL 5 MG TABLET PO PRN (12:31)
[2020-07-03] MEDS ORDERED: LACTATED RINGERS SOLUTION 1,000 ML IV SCH (12:45)
== END 2020-07-03 10:24 | disposition home or self-care (01) ==
LOC: FASU 06:18
PROVIDERS: ATTEND Orthopaedic Surgery Hand Surgery
PROC: 01N50ZZ Release Median Nerve, Open Approach (ICD-10-PCS; principal; 2020-07-03 09:15)
DX: G56.02 Carpal tunnel syndrome, left upper limb (principal)
CPT/HCPCS: 82962

== ENCOUNTER 2021-02-02 07:47 | Emergency (ER) | payer OTHER, BC ==
[2021-02-02 07:56] VITALS: BP 140/73; PULSE 82; TEMP 97.9; BMI 29.0
[2021-02-02 09:15] LABS: BILIRUBIN,TOTAL 0.6 mg/dl (0.2-1); CALCIUM 8.9 mg/dl (8.5-10); CREATININE 2.4 mg/dl (0.55-1.3); POTASSIUM 3.9 mmol/L (3.5-5.1); TOT PROT 7.3 g/dl (6.4-8.2)
[2021-02-02 09:17] LABS: BASO % 1.1 % (0-2.0); EOS % 0.5 % (0-4.5); HEMATOCRIT 32.6 % (35.4-49); HEMOGLOBIN 10.7 GM/dl (11.7-16.9); LYMPH % 24.3 % (8-40); MCH 27.1 pg (25.7-33.7); MCHC 32.7 g/dl (32.0-35.9); MEAN CELL VOLUME 82.9 fl (80-96); MEAN PLT VOLUME 9.5 fl (7.5-11.1); MONO % 12.8 % (3.8-10.2); NEUT % 61.3 % (42.8-82.8); PLATELET COUNT 183 K/MM3 (134-434); RBC 3.93 M/mm3 (4.00-5.60); RDW 14.9 % (11.9-15.9); WHITE BLOOD COUNT 5.1 K/mm3 (4.0-10.8)
[2021-02-02 10:01] LABS: EPITHELIAL CELLS RARE /hpf
== END 2021-02-02 09:31 | disposition home or self-care (01) ==
LOC: FER 07:47
DX: R53.83 Other fatigue (principal); G47.00 Insomnia, unspecified
CPT/HCPCS: 36415; 80053; 81003; 81015; 85025; 99284-25; C9803; U0003; U0005

== ENCOUNTER 2021-02-04 10:55 | Emergency (ER) | payer OTHER, BC ==
[2021-02-04 11:10] VITALS: TEMP 98.6; BMI 29.0
[2021-02-04 11:38] LABS: BASO % 1.3 % (0-2.0); EOS % 0.2 % (0-4.5); HEMATOCRIT 33.5 % (35.4-49); LYMPH % 23.5 % (8-40); MCH 27.2 pg (25.7-33.7); MEAN CELL VOLUME 82.5 fl (80-96); MEAN PLT VOLUME 9.1 fl (7.5-11.1); MONO % 12.7 % (3.8-10.2); NEUT % 62.3 % (42.8-82.8); PLATELET COUNT 172 K/MM3 (134-434); RBC 4.06 M/mm3 (4.00-5.60); RDW 15.3 % (11.9-15.9); WHITE BLOOD COUNT 4.4 K/mm3 (4.0-10.8)
[2021-02-04 11:50] LABS: ALBUMIN 4.1 g/dl (3.4-5.0); BILIRUBIN,TOTAL 0.8 mg/dl (0.2-1); CALCIUM 8.8 mg/dl (8.5-10); CREATININE 2.2 mg/dl (0.55-1.3); PHOSPHOROUS 3.5 mg/dl (2.5-4.9); POTASSIUM 3.9 mmol/L (3.5-5.1); TOT PROT 7.4 g/dl (6.4-8.2)
[2021-02-04 13:09] VITALS: BP 145/77; PULSE 70
== END 2021-02-04 13:10 | disposition home or self-care (01) ==
LOC: SUPCPDRO 10:55 → FER 10:55
DX: R53.1 Weakness (principal)
CPT/HCPCS: 36415; 70450-TC; 71045-TC-FY; 80053; 81003; 81015; 82550; 82553; 83735; 84100; 84484; 85025; 87086; 93005; 99285-25; C9803; U0003; U0005

== ENCOUNTER 2021-02-08 05:39 | Inpatient (IN) | payer OTHER, BC ==
[2021-02-08 05:56] VITALS: BMI 29.0
[2021-02-08 10:30] LABS: BASO % 0.5 % (0-2.0); EOS % 0.2 % (0-4.5); HEMATOCRIT 34.5 % (35.4-49); HEMOGLOBIN 11.4 GM/dL (11.7-16.9); MCH 27.2 pg (25.7-33.7); MCHC 32.9 g/dl (32.0-35.9); MEAN CELL VOLUME 82.7 fl (80-96); MEAN PLT VOLUME 8.9 fl (7.5-11.1); MONO % 15.9 % (3.8-10.2); NEUT % 60.4 % (42.8-82.8); PLATELET COUNT 171 K/MM3 (134-434); RBC 4.17 M/mm3 (4.00-5.60); RDW 16.3 % (11.9-15.9); WHITE BLOOD COUNT 5.6 K/mm3 (4.0-10.0)
[2021-02-08 10:53] LABS: CHLORIDE 108 mmol/L (98-107); SODIUM 141 mmol/L (136-145)
[2021-02-08 10:54] LABS: CALCIUM 9.6 mg/dL (8.5-10.1)
[2021-02-08 10:55] LABS: ANION GAP 7 MMOL/L (8-16); BLOOD UREA NITROGEN 26.1 mg/dL (7-18); CO2 26 mmol/L (21-32); GLUCOSE,RANDOM 138 mg/dL (74-106)
[2021-02-08 10:57] LABS: CHOLESTEROL 124 mg/dL (50-200); CREATININE 2.2 mg/dL (0.55-1.3)
[2021-02-08 10:58] LABS: SGOT/AST 20 U/L (15-37); SGPT/ALT 19 U/L (13-61); TRIGLYCERIDES 104 mg/dL (0-150)
[2021-02-08 10:59] LABS: BILIRUBIN,TOTAL 0.6 mg/dL (0.2-1); LDL CHOLESTEROL (ONLY SJRH) 62 mg/dL (5-100); TOT PROT 7.8 g/dl (6.4-8.2)
[2021-02-08 11:00] LABS: ALK PHOS 86 U/L (45-117); HDL CHOLESTEROL 41 mg/dL (40-60)
[2021-02-08] MEDS ORDERED: LABETALOL HCL 5 MG/1 ML (100MG/20 ML VIAL) IVPUSH ONE (13:20)
[2021-02-08] MEDS ORDERED: amLODIPine BESYLATE 10 MG TABLET (FP) PO ONE (13:21)
[2021-02-08] MEDS ORDERED: CARVEDILOL 12.5 MG TABLET (FP) PO ONE (13:21)
[2021-02-08] MEDS ORDERED: amLODIPine BESYLATE 5 MG TABLET (FP) ONE (13:30)
[2021-02-08] MEDS ORDERED: CARVEDILOL 12.5 MG TABLET (FP) ONE (13:30)
[2021-02-08] MEDS ORDERED: LABETALOL HCL 5 MG/1 ML (100MG/20 ML VIAL) ONE (13:31)
[2021-02-08] MEDS ORDERED: ASPIRIN COATED 81 MG TABLET.EC ONE (17:07)
[2021-02-08] MEDS ORDERED: CLOPIDOGREL BISULFATE 75 MG TABLET (FP) ONE (17:07)
[2021-02-08] MEDS ORDERED: TAMSULOSIN HCL 0.4 MG CAP ONE (17:08)
[2021-02-08] MEDS: CLOPIDOGREL BISULFATE 75 MG TABLET (FP) PO SCH (17:21)
[2021-02-08] MEDS: ASPIRIN COATED 81 MG TABLET.EC PO SCH (17:21)
[2021-02-08] MEDS: TAMSULOSIN HCL 0.4 MG CAP PO SCH (17:21)
[2021-02-08] MEDS: INSULIN SLIDING SCALE (NOVOLOG) 1 VIAL SQ SCH ×2 (17:58→21:49)
[2021-02-08] MEDS: CARVEDILOL 25 MG TABLET (FP) PO SCH (21:49)
[2021-02-08] MEDS: HEPARIN NA (PORCINE) 5,000 UNITS/ML 1ML VIAL SQ SCH (21:49)
[2021-02-08] MEDS: ATORVASTATIN CA 80 MG TABLET (FP) PO SCH (21:49)
[2021-02-09] MEDS: CARVEDILOL 12.5 MG TABLET (FP) PO SCH (06:20)
[2021-02-09] MEDS: INSULIN SLIDING SCALE (NOVOLOG) 1 VIAL SQ SCH ×4 (06:20→21:07)
[2021-02-09 07:24] LABS: HEMATOCRIT 33.5 % (35.4-49); HEMOGLOBIN 11.3 GM/dL (11.7-16.9); MCH 27.9 pg (25.7-33.7); MCHC 33.6 g/dl (32.0-35.9); MEAN CELL VOLUME 82.9 fl (80-96); MEAN PLT VOLUME 9.4 fl (7.5-11.1); PLATELET COUNT 156 K/MM3 (134-434); RBC 4.04 M/mm3 (4.00-5.60); RDW 16.3 % (11.9-15.9); WHITE BLOOD COUNT 5.3 K/mm3 (4.0-10.0)
[2021-02-09 07:25] LABS: CALCIUM 9.2 mg/dL (8.5-10.1); CHOLESTEROL 110 mg/dL (50-200); TRIGLYCERIDES 122 mg/dL (0-150)
[2021-02-09 07:26] LABS: ALBUMIN 3.7 g/dl (3.4-5.0); BLOOD UREA NITROGEN 30.4 mg/dL (7-18); LDL CHOLESTEROL (ONLY SJRH) 60 mg/dL (5-100); MAGNESIUM 2.2 mg/dL (1.8-2.4)
[2021-02-09 07:28] LABS: HDL CHOLESTEROL 35 mg/dL (40-60)
[2021-02-09 07:29] LABS: CREATININE 2.2 mg/dL (0.55-1.3)
[2021-02-09 07:30] LABS: BILIRUBIN,TOTAL 0.7 mg/dL (0.2-1)
[2021-02-09] MEDS: amLODIPine BESYLATE 10 MG TABLET (FP) PO SCH (09:54)
[2021-02-09] MEDS: CLOPIDOGREL BISULFATE 75 MG TABLET (FP) PO SCH (09:54)
[2021-02-09] MEDS: TAMSULOSIN HCL 0.4 MG CAP PO SCH (09:54)
[2021-02-09] MEDS: ASCORBIC ACID 500 MG TABLET (FP) PO SCH (09:54)
[2021-02-09] MEDS: ASPIRIN COATED 81 MG TABLET.EC PO SCH (09:55)
[2021-02-09] MEDS: HEPARIN NA (PORCINE) 5,000 UNITS/ML 1ML VIAL SQ SCH ×2 (09:55→21:07)
[2021-02-09] MEDS: ATORVASTATIN CA 80 MG TABLET (FP) PO SCH (21:07)
[2021-02-09] MEDS: CARVEDILOL 25 MG TABLET (FP) PO SCH (21:07)
[2021-02-10] MEDS: CARVEDILOL 12.5 MG TABLET (FP) PO SCH (06:10)
[2021-02-10] MEDS: INSULIN SLIDING SCALE (NOVOLOG) 1 VIAL SQ SCH ×4 (06:11→21:58)
[2021-02-10 07:51] LABS: BASO % 0.5 % (0-2.0); EOS % 0.2 % (0-4.5); HEMATOCRIT 33.5 % (35.4-49); HEMOGLOBIN 11.4 GM/dL (11.7-16.9); LYMPH % 30.8 % (8-40); MCHC 33.9 g/dl (32.0-35.9); MEAN CELL VOLUME 82.5 fl (80-96); MEAN PLT VOLUME 9.3 fl (7.5-11.1); MONO % 18.3 % (3.8-10.2); NEUT % 50.2 % (42.8-82.8); PLATELET COUNT 147 K/MM3 (134-434); RBC 4.06 M/mm3 (4.00-5.60); WHITE BLOOD COUNT 5.2 K/mm3 (4.0-10.0)
[2021-02-10 08:08] LABS: ALBUMIN 3.6 g/dl (3.4-5.0); BLOOD UREA NITROGEN 32.6 mg/dL (7-18); MAGNESIUM 2.2 mg/dL (1.8-2.4)
[2021-02-10 08:11] LABS: CREATININE 2.3 mg/dL (0.55-1.3)
[2021-02-10 08:14] LABS: BILIRUBIN,TOTAL 0.7 mg/dL (0.2-1); TOT PROT 7.1 g/dl (6.4-8.2)
[2021-02-10] MEDS: amLODIPine BESYLATE 10 MG TABLET (FP) PO SCH (09:09)
[2021-02-10] MEDS: TAMSULOSIN HCL 0.4 MG CAP PO SCH (09:09)
[2021-02-10] MEDS: ASPIRIN COATED 81 MG TABLET.EC PO SCH (09:10)
[2021-02-10] MEDS: HEPARIN NA (PORCINE) 5,000 UNITS/ML 1ML VIAL SQ SCH ×2 (09:10→21:58)
[2021-02-10] MEDS: CLOPIDOGREL BISULFATE 75 MG TABLET (FP) PO SCH (09:10)
[2021-02-10] MEDS: ASCORBIC ACID 500 MG TABLET (FP) PO SCH (09:10)
[2021-02-10] MEDS: MELATONIN 5 MG TABLETS PO PRN (21:58)
[2021-02-10] MEDS: ATORVASTATIN CA 80 MG TABLET (FP) PO SCH (21:58)
[2021-02-10] MEDS: CARVEDILOL 25 MG TABLET (FP) PO SCH (21:58)
[2021-02-11] MEDS ORDERED: MELATONIN 5 MG TABLETS PO ONE (03:02)
[2021-02-11] MEDS: INSULIN SLIDING SCALE (NOVOLOG) 1 VIAL SQ SCH ×4 (06:56→21:43)
[2021-02-11] MEDS: CARVEDILOL 12.5 MG TABLET (FP) PO SCH (06:57)
[2021-02-11 07:43] LABS: BASO % 0.3 % (0-2.0); EOS % 0.3 % (0-4.5); HEMATOCRIT 33.6 % (35.4-49); HEMOGLOBIN 11.4 GM/dL (11.7-16.9); LYMPH % 29.4 % (8-40); MCH 27.7 pg (25.7-33.7); MEAN CELL VOLUME 81.7 fl (80-96); MEAN PLT VOLUME 9.6 fl (7.5-11.1); MONO % 18.2 % (3.8-10.2); NEUT % 51.8 % (42.8-82.8); PLATELET COUNT 148 K/MM3 (134-434); RBC 4.12 M/mm3 (4.00-5.60); RDW 16.1 % (11.9-15.9); WHITE BLOOD COUNT 5.2 K/mm3 (4.0-10.0)
[2021-02-11 08:07] LABS: CALCIUM 8.8 mg/dL (8.5-10.1)
[2021-02-11 08:08] LABS: ALBUMIN 3.7 g/dl (3.4-5.0); BLOOD UREA NITROGEN 32.3 mg/dL (7-18)
[2021-02-11 08:11] LABS: BILIRUBIN,TOTAL 0.5 mg/dL (0.2-1); CREATININE 2.2 mg/dL (0.55-1.3)
[2021-02-11] MEDS ORDERED: PT OWN MED DRAWER 7, Y5N ONE (09:27)
[2021-02-11] MEDS: ASCORBIC ACID 500 MG TABLET (FP) PO SCH (10:05)
[2021-02-11] MEDS: ASPIRIN COATED 81 MG TABLET.EC PO SCH (10:06)
[2021-02-11] MEDS: CLOPIDOGREL BISULFATE 75 MG TABLET (FP) PO SCH (10:06)
[2021-02-11] MEDS: amLODIPine BESYLATE 10 MG TABLET (FP) PO SCH (10:06)
[2021-02-11] MEDS: HEPARIN NA (PORCINE) 5,000 UNITS/ML 1ML VIAL SQ SCH ×2 (10:06→21:42)
[2021-02-11] MEDS: TAMSULOSIN HCL 0.4 MG CAP PO SCH (10:06)
[2021-02-11] MEDS ORDERED: SODIUM CHLORIDE 0.45% 1,000 ML IV SCH (18:30)
[2021-02-11] MEDS: LORazepam 1 MG TABLET PO PRN (21:40)
[2021-02-11] MEDS: CARVEDILOL 25 MG TABLET (FP) PO SCH (21:40)
[2021-02-11] MEDS: ATORVASTATIN CA 80 MG TABLET (FP) PO SCH (21:40)
[2021-02-12] MEDS: INSULIN SLIDING SCALE (NOVOLOG) 1 VIAL SQ SCH ×4 (06:41→21:26)
[2021-02-12] MEDS: CARVEDILOL 12.5 MG TABLET (FP) PO SCH (06:41)
[2021-02-12 07:13] LABS: BASO % 0.4 % (0-2.0); EOS % 0.3 % (0-4.5); HEMATOCRIT 33.1 % (35.4-49); HEMOGLOBIN 11.4 GM/dL (11.7-16.9); LYMPH % 30.6 % (8-40); MCH 28.1 pg (25.7-33.7); MCHC 34.3 g/dl (32.0-35.9); MEAN CELL VOLUME 81.8 fl (80-96); MEAN PLT VOLUME 9.8 fl (7.5-11.1); MONO % 18.4 % (3.8-10.2); NEUT % 50.3 % (42.8-82.8); PLATELET COUNT 148 K/MM3 (134-434); RBC 4.05 M/mm3 (4.00-5.60); WHITE BLOOD COUNT 5.3 K/mm3 (4.0-10.0)
[2021-02-12 07:35] LABS: CALCIUM 9.2 mg/dL (8.5-10.1)
[2021-02-12 07:36] LABS: ALBUMIN 3.5 g/dl (3.4-5.0); BLOOD UREA NITROGEN 34.9 mg/dL (7-18); MAGNESIUM 2.2 mg/dL (1.8-2.4)
[2021-02-12 07:38] LABS: BILIRUBIN,TOTAL 0.5 mg/dL (0.2-1)
[2021-02-12 07:39] LABS: CREATININE 2.2 mg/dL (0.55-1.3)
[2021-02-12] MEDS: TAMSULOSIN HCL 0.4 MG CAP PO SCH (10:09)
[2021-02-12] MEDS: CLOPIDOGREL BISULFATE 75 MG TABLET (FP) PO SCH (10:09)
[2021-02-12] MEDS: ASPIRIN COATED 81 MG TABLET.EC PO SCH (10:09)
[2021-02-12] MEDS: ASCORBIC ACID 500 MG TABLET (FP) PO SCH (10:09)
[2021-02-12] MEDS: HEPARIN NA (PORCINE) 5,000 UNITS/ML 1ML VIAL SQ SCH ×2 (10:10→21:14)
[2021-02-12] MEDS: amLODIPine BESYLATE 10 MG TABLET (FP) PO SCH (10:10)
[2021-02-12] MEDS: ATORVASTATIN CA 80 MG TABLET (FP) PO SCH (21:15)
[2021-02-12] MEDS: CARVEDILOL 25 MG TABLET (FP) PO SCH (21:15)
[2021-02-12] MEDS: LORazepam 1 MG TABLET PO PRN (21:15)
[2021-02-12] MEDS: MELATONIN 5 MG TABLETS PO PRN (21:29)
[2021-02-13] MEDS: CARVEDILOL 12.5 MG TABLET (FP) PO SCH (06:26)
[2021-02-13] MEDS: INSULIN SLIDING SCALE (NOVOLOG) 1 VIAL SQ SCH ×4 (06:29→21:28)
[2021-02-13 08:07] LABS: BASO % 0.5 % (0-2.0); EOS % 0.4 % (0-4.5); HEMATOCRIT 32.3 % (35.4-49); HEMOGLOBIN 10.8 GM/dL (11.7-16.9); LYMPH % 27.2 % (8-40); MCH 27.9 pg (25.7-33.7); MCHC 33.6 g/dl (32.0-35.9); MEAN CELL VOLUME 83.1 fl (80-96); MEAN PLT VOLUME 10.4 fl (7.5-11.1); MONO % 16.1 % (3.8-10.2); NEUT % 55.8 % (42.8-82.8); PLATELET COUNT 144 K/MM3 (134-434); RBC 3.89 M/mm3 (4.00-5.60); RDW 16.1 % (11.9-15.9); WHITE BLOOD COUNT 5.2 K/mm3 (4.0-10.0)
[2021-02-13 08:20] LABS: ALBUMIN 3.4 g/dl (3.4-5.0); BLOOD UREA NITROGEN 39.7 mg/dL (7-18); CALCIUM 9.1 mg/dL (8.5-10.1); MAGNESIUM 2.2 mg/dL (1.8-2.4)
[2021-02-13 08:24] LABS: CREATININE 2.3 mg/dL (0.55-1.3)
[2021-02-13 08:25] LABS: BILIRUBIN,TOTAL 0.5 mg/dL (0.2-1); TOT PROT 6.9 g/dl (6.4-8.2)
[2021-02-13] MEDS: amLODIPine BESYLATE 10 MG TABLET (FP) PO SCH (09:26)
[2021-02-13] MEDS: TAMSULOSIN HCL 0.4 MG CAP PO SCH (09:26)
[2021-02-13] MEDS: ASPIRIN COATED 81 MG TABLET.EC PO SCH (09:26)
[2021-02-13] MEDS: ASCORBIC ACID 500 MG TABLET (FP) PO SCH (09:26)
[2021-02-13] MEDS: CLOPIDOGREL BISULFATE 75 MG TABLET (FP) PO SCH (09:26)
[2021-02-13] MEDS: HEPARIN NA (PORCINE) 5,000 UNITS/ML 1ML VIAL SQ SCH ×2 (09:26→21:28)
[2021-02-13] MEDS ORDERED: REGADENOSON 0.4 MG/5 ML PRE-FILLED SYRINGE IVPUSH ONE ×2 (14:26→15:00)
[2021-02-13] MEDS: MELATONIN 5 MG TABLETS PO PRN (21:24)
[2021-02-13] MEDS: LORazepam 1 MG TABLET PO PRN (21:24)
[2021-02-13] MEDS: ATORVASTATIN CA 80 MG TABLET (FP) PO SCH (21:24)
[2021-02-13] MEDS: CARVEDILOL 25 MG TABLET (FP) PO SCH (21:26)
[2021-02-14] MEDS: CARVEDILOL 12.5 MG TABLET (FP) PO SCH (06:09)
[2021-02-14] MEDS: INSULIN SLIDING SCALE (NOVOLOG) 1 VIAL SQ SCH ×3 (06:09→22:47)
[2021-02-14 07:11] LABS: INR 1.11 (0.83-1.09); PROTHROMBIN TIME (PATIENT) 13.6 SEC (9.7-13.0)
[2021-02-14 07:22] LABS: BASO % 0.5 % (0-2.0); EOS % 0.3 % (0-4.5); HEMATOCRIT 33.2 % (35.4-49); HEMOGLOBIN 11.2 GM/dL (11.7-16.9); LYMPH % 28.8 % (8-40); MCH 27.9 pg (25.7-33.7); MCHC 33.8 g/dl (32.0-35.9); MEAN CELL VOLUME 82.5 fl (80-96); MEAN PLT VOLUME 9.7 fl (7.5-11.1); MONO % 18.2 % (3.8-10.2); NEUT % 52.2 % (42.8-82.8); PLATELET COUNT 143 K/MM3 (134-434); RBC 4.02 M/mm3 (4.00-5.60); RDW 15.8 % (11.9-15.9); WHITE BLOOD COUNT 5.1 K/mm3 (4.0-10.0)
[2021-02-14 07:38] LABS: ALBUMIN 3.6 g/dl (3.4-5.0); BLOOD UREA NITROGEN 40.8 mg/dL (7-18); CALCIUM 8.9 mg/dL (8.5-10.1)
[2021-02-14 07:42] LABS: CREATININE 2.2 mg/dL (0.55-1.3)
[2021-02-14 07:44] LABS: BILIRUBIN,TOTAL 0.5 mg/dL (0.2-1); TOT PROT 6.8 g/dl (6.4-8.2)
[2021-02-14] MEDS ORDERED: PT OWN MED DRAWER 7, Y5N ONE (10:03)
[2021-02-14] MEDS: ASCORBIC ACID 500 MG TABLET (FP) PO SCH (10:07)
[2021-02-14] MEDS: ASPIRIN COATED 81 MG TABLET.EC PO SCH (10:08)
[2021-02-14] MEDS: TAMSULOSIN HCL 0.4 MG CAP PO SCH (10:08)
[2021-02-14] MEDS: amLODIPine BESYLATE 10 MG TABLET (FP) PO SCH (10:08)
[2021-02-14] MEDS ORDERED: LIDOCAINE HCL 1%, 10 MG/ML (20ML VIAL) ONE (12:16)
[2021-02-14] MEDS ORDERED: HEPARIN NA (PORCINE) 5,000 UNITS/ML 1ML VIAL ONE (12:16)
[2021-02-14] MEDS ORDERED: LIDOCAINE HCL/PF 2% SDV 5ML VIAL ONE (14:11)
[2021-02-14] MEDS ORDERED: ROCURONIUM BROMIDE 50 MG/5 ML SYRINGE ONE ×2 (14:12→16:53)
[2021-02-14] MEDS ORDERED: MIDAZOLAM HCL 2 MG/2 ML SINGLE DOSE VIAL ONE (14:12)
[2021-02-14] MEDS ORDERED: PROPOFOL 20 ML ONE (14:12)
[2021-02-14] MEDS ORDERED: LIDOCAINE HCL 0.5%, 5 MG/ML (50mL SDVIAL) ONE (14:23)
[2021-02-14] MEDS ORDERED: POVIDONE-IODINE OINTMENT 10% - 28.4 GM TUBE ONE (14:30)
[2021-02-14] MEDS ORDERED: CEFAZOLIN 2 GM/D5W 2 GM/50 ML ML IVPB ONE ×2 (14:45→19:16)
[2021-02-14] MEDS ORDERED: EPHEDRINE SULFATE/0.9% NACL/PF 50 MG/10 ML SYRINGE NR ONE (15:39)
[2021-02-14] MEDS ORDERED: ceFAZolin SODIUM 1 GM VIAL IVPB ONE (15:42)
[2021-02-14] MEDS ORDERED: NITROGLYCERIN 50 MG/10 ML VIAL IVPB ONE (17:09)
[2021-02-14] MEDS ORDERED: PROTAMINE SULFATE 50 MG/5 ML VIAL ONE (17:42)
[2021-02-14] MEDS ORDERED: PHENYLEPHRINE HCL 10 MG/1 ML SINGLE DOSE VIAL ONE (17:44)
[2021-02-14] MEDS ORDERED: NEOSTIGMINE METHYLSULFATE 0.5 MG/ML - 10 ML MDV ONE (17:56)
[2021-02-14] MEDS ORDERED: MELATONIN 5 MG TABLETS PO PRN (19:16)
[2021-02-14] MEDS ORDERED: LORazepam 1 MG TABLET PO PRN (19:16)
[2021-02-14] MEDS ORDERED: ONDANSETRON 4 MG/2 ML VIAL IVPUSH PRN (19:22)
[2021-02-14] MEDS ORDERED: LORazepam 2 MG/ML SDV VIAL IVPUSH ONE ×2 (22:31→22:35)
[2021-02-14] MEDS ORDERED: ALBUTEROL SO4 0.083% IH SOL 2.5 MG/3 ML VIAL.NEB. NEB PRN (22:43)
[2021-02-14] MEDS: CARVEDILOL 25 MG TABLET (FP) PO SCH (22:47)
[2021-02-14] MEDS: HEPARIN NA (PORCINE) 5,000 UNITS/ML 1ML VIAL SQ SCH (22:47)
[2021-02-14] MEDS: ATORVASTATIN CA 80 MG TABLET (FP) PO SCH (22:47)
[2021-02-14] MEDS: CHLORHEXIDINE GLUCONATE 4% CLEANSER FOR DECOLONIZATION TP SCH (22:47)
[2021-02-14] MEDS: MUPIROCIN 2% TOPICAL OINTMENT FOR DECOLONIZATION NS SCH (22:47)
[2021-02-15] MEDS ORDERED: LABETALOL HCL 5 MG/1 ML (100MG/20 ML VIAL) IVPUSH ONE ×2 (00:38→02:28)
[2021-02-15] MEDS ORDERED: BENZOCAINE/MENTH/CETYLPYRD CL 1 EACH LOZENGE MM PRN (02:27)
[2021-02-15] MEDS ORDERED: ACETAMINOPHEN 1000 MG/100 ML VIAL (NON FORMULARY) IVPB ONE (06:15)
[2021-02-15] MEDS: INSULIN SLIDING SCALE (NOVOLOG) 1 VIAL SQ SCH ×4 (06:44→21:23)
[2021-02-15] MEDS: CARVEDILOL 12.5 MG TABLET (FP) PO SCH (06:44)
[2021-02-15 07:11] LABS: BASO % 0.2 % (0-2.0); HEMATOCRIT 33.2 % (35.4-49); HEMOGLOBIN 11.3 GM/dL (11.7-16.9); LYMPH % 8.6 % (8-40); MCHC 34.2 g/dl (32.0-35.9); MEAN CELL VOLUME 81.9 fl (80-96); MEAN PLT VOLUME 9.7 fl (7.5-11.1); MONO % 14.9 % (3.8-10.2); NEUT % 76.3 % (42.8-82.8); PLATELET COUNT 138 K/MM3 (134-434); RBC 4.05 M/mm3 (4.00-5.60); RDW 16.2 % (11.9-15.9); WHITE BLOOD COUNT 9.7 K/mm3 (4.0-10.0)
[2021-02-15 07:33] LABS: CALCIUM 8.7 mg/dL (8.5-10.1)
[2021-02-15 07:35] LABS: ALBUMIN 3.5 g/dl (3.4-5.0); BLOOD UREA NITROGEN 35.1 mg/dL (7-18); MAGNESIUM 1.7 mg/dL (1.8-2.4)
[2021-02-15 07:37] LABS: CREATININE 2.1 mg/dL (0.55-1.3)
[2021-02-15] MEDS ORDERED: PT OWN MED DRAWER 7, Y5N ONE (07:37)
[2021-02-15 07:38] LABS: BILIRUBIN,TOTAL 0.7 mg/dL (0.2-1); TOT PROT 6.9 g/dl (6.4-8.2)
[2021-02-15] MEDS: TAMSULOSIN HCL 0.4 MG CAP PO SCH (07:38)
[2021-02-15] MEDS ORDERED: MAGNESIUM 1GM/D5W 100ML - 100 ML IVPB IVPB ONE (09:00)
[2021-02-15] MEDS: ASPIRIN COATED 81 MG TABLET.EC PO SCH (11:25)
[2021-02-15] MEDS: HEPARIN NA (PORCINE) 5,000 UNITS/ML 1ML VIAL SQ SCH ×2 (11:25→21:23)
[2021-02-15] MEDS: CLOPIDOGREL BISULFATE 75 MG TABLET (FP) PO SCH (11:26)
[2021-02-15] MEDS: amLODIPine BESYLATE 10 MG TABLET (FP) PO SCH (11:26)
[2021-02-15] MEDS: ASCORBIC ACID 500 MG TABLET (FP) PO SCH (11:26)
[2021-02-15] MEDS: MUPIROCIN 2% TOPICAL OINTMENT FOR DECOLONIZATION NS SCH ×2 (11:35→21:23)
[2021-02-15] MEDS ORDERED: ACETAMINOPHEN 1000 MG/100 ML VIAL (NON FORMULARY) IVPB PRN (12:44)
[2021-02-15] MEDS: ATORVASTATIN CA 80 MG TABLET (FP) PO SCH (21:22)
[2021-02-15] MEDS: CARVEDILOL 25 MG TABLET (FP) PO SCH (21:22)
[2021-02-15] MEDS: CHLORHEXIDINE GLUCONATE 4% CLEANSER FOR DECOLONIZATION TP SCH (21:23)
[2021-02-16] MEDS: INSULIN SLIDING SCALE (NOVOLOG) 1 VIAL SQ SCH ×6 (06:03→21:27)
[2021-02-16] MEDS: CARVEDILOL 12.5 MG TABLET (FP) PO SCH (06:07)
[2021-02-16 07:06] LABS: HEMATOCRIT 29.7 % (35.4-49); MCH 27.6 pg (25.7-33.7); MCHC 33.6 g/dl (32.0-35.9); MEAN CELL VOLUME 82.2 fl (80-96); MEAN PLT VOLUME 9.9 fl (7.5-11.1); PLATELET COUNT 129 K/MM3 (134-434); RBC 3.61 M/mm3 (4.00-5.60); RDW 16.2 % (11.9-15.9); WHITE BLOOD COUNT 7.1 K/mm3 (4.0-10.0)
[2021-02-16 07:31] LABS: CALCIUM 8.5 mg/dL (8.5-10.1)
[2021-02-16 07:32] LABS: BLOOD UREA NITROGEN 31.7 mg/dL (7-18); MAGNESIUM 2.1 mg/dL (1.8-2.4)
[2021-02-16 07:35] LABS: CREATININE 2.1 mg/dL (0.55-1.3); PHOSPHOROUS 2.4 mg/dL (2.5-4.9)
[2021-02-16 07:37] LABS: BILIRUBIN,TOTAL 0.5 mg/dL (0.2-1); TOT PROT 6.1 g/dl (6.4-8.2)
[2021-02-16] MEDS: MUPIROCIN 2% TOPICAL OINTMENT FOR DECOLONIZATION NS SCH (09:23)
[2021-02-16] MEDS: TAMSULOSIN HCL 0.4 MG CAP PO SCH (09:23)
[2021-02-16] MEDS: ASCORBIC ACID 500 MG TABLET (FP) PO SCH (09:24)
[2021-02-16] MEDS: ASPIRIN COATED 81 MG TABLET.EC PO SCH (09:24)
[2021-02-16] MEDS: HEPARIN NA (PORCINE) 5,000 UNITS/ML 1ML VIAL SQ SCH ×2 (09:24→21:26)
[2021-02-16] MEDS: CLOPIDOGREL BISULFATE 75 MG TABLET (FP) PO SCH (09:24)
[2021-02-16] MEDS: amLODIPine BESYLATE 10 MG TABLET (FP) PO SCH (09:24)
[2021-02-16] MEDS ORDERED: ONDANSETRON 4 MG/2 ML VIAL IVPUSH PRN (16:44)
[2021-02-16] MEDS ORDERED: BENZOCAINE/MENTH/CETYLPYRD CL 1 EACH LOZENGE MM PRN (16:44)
[2021-02-16] MEDS ORDERED: LORazepam 1 MG TABLET PO PRN (16:44)
[2021-02-16] MEDS ORDERED: ALBUTEROL SO4 0.083% IH SOL 2.5 MG/3 ML VIAL.NEB. NEB PRN (16:44)
[2021-02-16] MEDS ORDERED: MELATONIN 5 MG TABLETS PO PRN (16:44)
[2021-02-16] MEDS: POLYETHYLENE GLYCOL 3350 119 GM BTL PO SCH (21:26)
[2021-02-16] MEDS: ATORVASTATIN CA 80 MG TABLET (FP) PO SCH (21:26)
[2021-02-16] MEDS: CARVEDILOL 25 MG TABLET (FP) PO SCH (21:26)
[2021-02-16] MEDS: DOCUSATE SODIUM 100 MG CAPSULE (FP) PO SCH (21:26)
[2021-02-17] MEDS ORDERED: MELATONIN 5 MG TABLETS PO ONE (00:48)
[2021-02-17] MEDS: INSULIN SLIDING SCALE (NOVOLOG) 1 VIAL SQ SCH ×4 (06:16→21:21)
[2021-02-17] MEDS: CARVEDILOL 12.5 MG TABLET (FP) PO SCH (06:16)
[2021-02-17] MEDS: TAMSULOSIN HCL 0.4 MG CAP PO SCH (08:58)
[2021-02-17 09:28] LABS: BASO % 0.4 % (0-2.0); EOS % 0.3 % (0-4.5); HEMOGLOBIN 9.5 GM/dL (11.7-16.9); LYMPH % 18.3 % (8-40); MCH 27.9 pg (25.7-33.7); MCHC 33.8 g/dl (32.0-35.9); MEAN CELL VOLUME 82.5 fl (80-96); PLATELET COUNT 125 K/MM3 (134-434); RBC 3.39 M/mm3 (4.00-5.60); RDW 16.2 % (11.9-15.9); WHITE BLOOD COUNT 5.2 K/mm3 (4.0-10.0)
[2021-02-17] MEDS: CLOPIDOGREL BISULFATE 75 MG TABLET (FP) PO SCH (10:08)
[2021-02-17] MEDS: amLODIPine BESYLATE 10 MG TABLET (FP) PO SCH (10:08)
[2021-02-17] MEDS: HEPARIN NA (PORCINE) 5,000 UNITS/ML 1ML VIAL SQ SCH ×2 (10:08→21:21)
[2021-02-17] MEDS: POLYETHYLENE GLYCOL 3350 119 GM BTL PO SCH ×2 (10:09→21:21)
[2021-02-17] MEDS: ASCORBIC ACID 500 MG TABLET (FP) PO SCH (10:09)
[2021-02-17] MEDS: ASPIRIN COATED 81 MG TABLET.EC PO SCH (10:09)
[2021-02-17 10:22] LABS: ALBUMIN 2.8 g/dl (3.4-5.0); BLOOD UREA NITROGEN 30.7 mg/dL (7-18)
[2021-02-17 10:23] LABS: CALCIUM 8.6 mg/dL (8.5-10.1); MAGNESIUM 2.2 mg/dL (1.8-2.4)
[2021-02-17 10:27] LABS: BILIRUBIN,TOTAL 0.9 mg/dL (0.2-1); TOT PROT 6.2 g/dl (6.4-8.2)
[2021-02-17] MEDS ORDERED: ZOLPIDEM TARTRATE 5 MG TABLET PO ONE (20:16)
[2021-02-17] MEDS: DOCUSATE SODIUM 100 MG CAPSULE (FP) PO SCH (21:21)
[2021-02-17] MEDS: CARVEDILOL 25 MG TABLET (FP) PO SCH (21:21)
[2021-02-17] MEDS: ATORVASTATIN CA 80 MG TABLET (FP) PO SCH (21:21)
[2021-02-18] MEDS: CARVEDILOL 12.5 MG TABLET (FP) PO SCH (06:19)
[2021-02-18] MEDS: INSULIN SLIDING SCALE (NOVOLOG) 1 VIAL SQ SCH ×2 (06:19→12:03)
[2021-02-18 07:52] LABS: BASO % 0.4 % (0-2.0); EOS % 0.4 % (0-4.5); HEMATOCRIT 28.6 % (35.4-49); HEMOGLOBIN 9.7 GM/dL (11.7-16.9); LYMPH % 23.2 % (8-40); MEAN CELL VOLUME 82.4 fl (80-96); MEAN PLT VOLUME 10.1 fl (7.5-11.1); MONO % 16.6 % (3.8-10.2); NEUT % 59.4 % (42.8-82.8); PLATELET COUNT 140 K/MM3 (134-434); RBC 3.47 M/mm3 (4.00-5.60); RDW 15.8 % (11.9-15.9); WHITE BLOOD COUNT 5.2 K/mm3 (4.0-10.0)
[2021-02-18] MEDS: TAMSULOSIN HCL 0.4 MG CAP PO SCH (08:05)
[2021-02-18 08:21] LABS: ALBUMIN 2.9 g/dl (3.4-5.0); BLOOD UREA NITROGEN 31.2 mg/dL (7-18); CALCIUM 8.9 mg/dL (8.5-10.1)
[2021-02-18 08:22] LABS: MAGNESIUM 2.2 mg/dL (1.8-2.4)
[2021-02-18 08:23] LABS: CREATININE 2.1 mg/dL (0.55-1.3)
[2021-02-18 08:24] LABS: BILIRUBIN,TOTAL 0.5 mg/dL (0.2-1)
[2021-02-18 08:25] LABS: TOT PROT 6.4 g/dl (6.4-8.2)
[2021-02-18] MEDS ORDERED: BISACODYL 10 MG SUPP.RECT PR ONE (09:30)
[2021-02-18] MEDS: CLOPIDOGREL BISULFATE 75 MG TABLET (FP) PO SCH (09:31)
[2021-02-18] MEDS: ASPIRIN COATED 81 MG TABLET.EC PO SCH (09:31)
[2021-02-18] MEDS: amLODIPine BESYLATE 10 MG TABLET (FP) PO SCH (09:31)
[2021-02-18] MEDS: POLYETHYLENE GLYCOL 3350 119 GM BTL PO SCH (09:32)
[2021-02-18] MEDS: HEPARIN NA (PORCINE) 5,000 UNITS/ML 1ML VIAL SQ SCH (09:32)
[2021-02-18] MEDS: ASCORBIC ACID 500 MG TABLET (FP) PO SCH (09:32)
[2021-02-18 14:06] VITALS: BP 124/57; PULSE 77; TEMP 98
== END 2021-02-18 17:52 | DRG 37 ==
LOC: JER 05:39 → JERBED 10:40 → J4S 20:42 → J2C 02-14 19:17 → JICU 02-14 21:52 → J4S 02-16 17:37
PROVIDERS: ADMIT Internal Medicine; ATTEND Nurse Practitioner Family
PROC: 03CL0ZZ Extirpation of Matter from Left Internal Carotid Artery, Open Approach (ICD-10-PCS; principal; 2021-02-14 15:30)
DX: I63.232 Cerebral infarction due to unspecified occlusion or stenosis of left carotid arteries (principal); I63.9 Cerebral infarction, unspecified; G95.9 Disease of spinal cord, unspecified; N18.4 Chronic kidney disease, stage 4 (severe); I69.351 Hemiplegia and hemiparesis following cerebral infarction affecting right dominant side; I10 Essential (primary) hypertension; R29.6 Repeated falls; E11.9 Type 2 diabetes mellitus without complications; N40.0 Benign prostatic hyperplasia without lower urinary tract symptoms; E78.5 Hyperlipidemia, unspecified
CPT/HCPCS: 36415; 70450-TC; 70547-TC; 70551-TC; 71045-TC-FY; 72125-TC; 72141-TC; 73030-TC-RT-FY; 78452-TC; 80053; 80061; 82607; 82962; 83036; 83721; 83735; 84100; 84484; 85025; 85027; 85610; 86850; 86900; 86901; 86922; 88304-TC; 88311-TC; 93005; 93010; 93017; 93306-TC; 93880-TC; 94010; 94640; 94760; 97116-GP; 97161-GP; 97163-GP; 99285-25; A9502; C9803; J0131; J1644; J2785; U0003; U0005

== ENCOUNTER 2023-01-21 10:33 | Emergency (ER) | payer OTHER, BC ==
[2023-01-21 10:43] VITALS: BP 153/69; PULSE 77; RESP 16; TEMP 97.6; BMI 29.0
== END 2023-01-21 11:51 | disposition home or self-care (01) ==
LOC: JER 10:33
DX: U07.1 COVID-19 (principal); N18.9 Chronic kidney disease, unspecified
CPT/HCPCS: 99283-25

== ENCOUNTER 2023-06-23 12:10 | Emergency (ER) | payer OTHER, BC ==
[2023-06-23 12:52] VITALS: BP 157/81; PULSE 70; RESP 20; TEMP 98.1; BMI 24.1
[2023-06-23 13:46] LABS: ALBUMIN 4.2 g/dl (3.4-5.0); BILIRUBIN,TOTAL 0.6 mg/dl (0.2-1); BLOOD UREA NITROGEN 42.1 mg/dl (7-18); CREATININE 3.3 mg/dl (0.6-1.3); HEMATOCRIT 29.2 % (35.4-49); HEMOGLOBIN 9.9 G/dL (11.7-16.9); MCHC 33.9 g/dl (32.0-35.9); MEAN CELL VOLUME 82.6 fl (80-96); MEAN PLT VOLUME 9.5 fl (7.5-11.1); PLATELET COUNT 131.1 10^3/uL (134-434); POTASSIUM 4.3 mmol/L (3.5-5.1); RBC 3.54 10^6/uL (4.00-5.60); RDW 16.8 % (11.9-15.9); SGOT/AST 10.2 U/L (15-37); TOT PROT 6.9 g/dl (6.4-8.2); WHITE BLOOD COUNT 3.2 10^3/uL (4.0-10.8)
[2023-06-23] MEDS ORDERED: SODIUM PHOSPHATE/NA BIPHOS 133 ML ENEMA PR ONE (15:40)
== END 2023-06-23 17:01 | disposition home or self-care (01) ==
LOC: FER 12:10
DX: R10.32 Left lower quadrant pain (principal); K59.00 Constipation, unspecified
CPT/HCPCS: 36415; 74176-TC; 80053; 83605; 83690; 85027; 99284-25

== ENCOUNTER 2023-11-15 09:43 | Emergency (ER) | payer OTHER, BC ==
[2023-11-15 09:48] VITALS: BP 151/72; PULSE 90; RESP 16; TEMP 98.8; BMI 29.8
== END 2023-11-15 11:13 | disposition home or self-care (01) ==
LOC: FER 09:43
DX: J45.21 Mild intermittent asthma with (acute) exacerbation (principal); R05.1 Acute cough; R50.9 Fever, unspecified; Z20.822 Contact with and (suspected) exposure to COVID-19
CPT/HCPCS: 0241U-QW; 71046-TC-FY; 99284-25

== ENCOUNTER 2024-04-09 15:54 | Observation (INO) | payer OTHER, BC ==
[2024-04-09 18:37] LABS: HEMATOCRIT 30.5 % (35.4-49); HEMOGLOBIN 9.5 G/dL (11.7-16.9); MCH 26.4 pg (25.7-33.7); MCHC 31.3 g/dl (32.0-35.9); MEAN CELL VOLUME 84.6 fl (80-96); MEAN PLT VOLUME 10.3 fl (7.5-11.1); PLATELET COUNT 119.4 10^3/uL (134-434); RBC 3.61 10^6/uL (4.00-5.60); RDW 16.2 % (11.9-15.9); WHITE BLOOD COUNT 3.5 10^3/uL (4.0-10.8)
[2024-04-09 18:41] LABS: ADD RBC MORPHOLOGY YES
[2024-04-09 18:48] LABS: ALBUMIN 4.3 g/dl (3.4-5.0); ALK PHOS 76 U/L (45-117); ANION GAP 11 mmol/L (4-13); BILIRUBIN,TOTAL 0.5 mg/dl (0.2-1); CALCIUM 9.1 mg/dl (8.5-10.1); CHLORIDE 108 mmol/L (98-107); CO2 19 mmol/L (21-32); CREATININE 3.8 mg/dl (0.6-1.3); GLUCOSE,RANDOM 129 mg/dl (74-106); POTASSIUM 4.7 mmol/L (3.5-5.1); SGOT/AST 12 U/L (15-37); SGPT/ALT 8 U/L (7-52); SODIUM 138 mmol/L (136-145); TOT PROT 7.3 g/dl (6.4-8.2)
[2024-04-09] MEDS ORDERED: CEFEPIME HCL 2 GM VIAL (RESTRICTED TO ID) ONE (19:23)
[2024-04-09] MEDS ORDERED: VANCOMYCIN 1,000 MG VIAL (RESTRICTED TO ID ONLY) ONE (19:23)
[2024-04-09] MEDS: CARVEDILOL 25 MG TABLET (FP) PO ONE (19:35)
[2024-04-09] MEDS: CEFEPIME HCL 1 GM VIAL (RESTRICTED TO ID) IVPB ONE (19:40)
[2024-04-09 19:51] LABS: ANISOCYTOSIS 1+; OVALOCYTE 1+; PLATELET ESTIMATE DECREASED
[2024-04-09] MEDS: VANCOMYCIN 1,000 MG in DEXTROSE 5%-WATER - 250 ML IVPB ONE (20:25)
[2024-04-10] MEDS: MELATONIN 5 MG TABLETS PO PRN (00:26)
[2024-04-10] MEDS: INSULIN ASPART SLIDING SCALE (NOVOLOG) 1 VIAL SQ SCH (06:18)
[2024-04-10] MEDS: CARVEDILOL 12.5 MG TABLET (FP) PO SCH (06:18)
[2024-04-10 08:57] LABS: ANION GAP 11 mmol/L (4-13); CALCIUM 9.1 mg/dl (8.5-10.1); CHLORIDE 110 mmol/L (98-107); CO2 19 mmol/L (21-32); CREATININE 3.8 mg/dl (0.6-1.3); GLUCOSE,RANDOM 99 mg/dl (74-106); POTASSIUM 4.3 mmol/L (3.5-5.1); SODIUM 140 mmol/L (136-145)
[2024-04-10 09:55] LABS: HEMATOCRIT 25.2 % (35.4-49); HEMOGLOBIN 8.5 GM/dL (11.7-16.9); MCH 27.7 pg (25.7-33.7); MCHC 33.8 g/dl (32.0-35.9); MEAN PLT VOLUME 9.8 fl (7.5-11.1); PLATELET COUNT 114 10^3/uL (134-434); RBC 3.08 M/mm3 (4.00-5.60); RDW 15.1 % (11.9-15.9)
[2024-04-10] MEDS ORDERED: ATORVASTATIN CA 80 MG TABLET (FP) PO SCH (10:00)
[2024-04-10] MEDS: TAMSULOSIN HCL 0.4 MG CAP PO SCH (10:01)
[2024-04-10] MEDS: CLOPIDOGREL BISULFATE 75 MG TABLET (FP) PO SCH (10:02)
[2024-04-10] MEDS: amLODIPine BESYLATE 10 MG TABLET (FP) PO SCH (10:02)
[2024-04-10 10:52] LABS: ANISOCYTOSIS 0; MACROCYTOSIS 0; OVALOCYTE 1+
[2024-04-10 11:30] VITALS: BMI 25.7
[2024-04-10] MEDS: SODIUM BICARBONATE 650 MG TABLET PO SCH (13:46)
[2024-04-10] MEDS: CARVEDILOL 25 MG TABLET (FP) PO SCH (17:33)
[2024-04-10] MEDS ORDERED: VANCOMYCIN 1,000 MG in DEXTROSE 5%-WATER - 250 ML IVPB SCH (20:00)
[2024-04-10] MEDS: VANCOMYCIN/WATER FOR INJ (PEG) 1,000 MG/200 ML BAG IVPB ONE (20:06)
[2024-04-10] MEDS: ATORVASTATIN CA 80 MG TABLET (FP) PO SCH (21:00)
[2024-04-10] MEDS: HEPARIN NA (PORCINE) 5,000 UNITS/ML 1ML VIAL SQ SCH (21:03)
[2024-04-11 08:53] LABS: ALBUMIN 4.2 g/dl (3.4-5.0); ALK PHOS 73 U/L (45-117); ANION GAP 13 mmol/L (4-13); BILIRUBIN,TOTAL 0.5 mg/dl (0.2-1); CALCIUM 9.1 mg/dl (8.5-10.1); CHLORIDE 109 mmol/L (98-107); CO2 18 mmol/L (21-32); CREATININE 4.1 mg/dl (0.6-1.3); GLUCOSE,RANDOM 97 mg/dl (74-106); POTASSIUM 4.1 mmol/L (3.5-5.1); SGOT/AST 12 U/L (15-37); SGPT/ALT 7 U/L (7-52); SODIUM 140 mmol/L (136-145); TOT PROT 7.3 g/dl (6.4-8.2)
[2024-04-11 10:03] LABS: BASO % 0.4 % (0-2.0); EOS % 0.7 % (0-4.5); HEMATOCRIT 28.5 % (35.4-49); HEMOGLOBIN 9.4 GM/dL (11.7-16.9); LYMPH % 35.3 % (8-40); MCH 27.5 pg (25.7-33.7); MEAN CELL VOLUME 83.3 fl (80-96); MEAN PLT VOLUME 9.8 fl (7.5-11.1); MONO % 18.9 % (3.8-10.2); NEUT % 44.7 % (42.8-82.8); PLATELET COUNT 132 10^3/uL (134-434); RBC 3.42 M/mm3 (4.00-5.60); RDW 14.7 % (11.9-15.9); WHITE BLOOD COUNT 3.4 K/mm3 (4.0-10.0)
[2024-04-11 10:13] VITALS: RESP 18
[2024-04-11] MEDS: FAMOTIDINE 10 MG TABLET PO ONE (21:25)
[2024-04-11] MEDS: LACTOBACILLUS ACIDOPHILUS 1 TABLET PO ONE (21:25)
[2024-04-12 09:15] LABS: ALBUMIN 3.7 g/dl (3.4-5.0); ALK PHOS 62 U/L (45-117); ANION GAP 12 mmol/L (4-13); BILIRUBIN,TOTAL 0.4 mg/dl (0.2-1); CALCIUM 8.6 mg/dl (8.5-10.1); CHLORIDE 110 mmol/L (98-107); CO2 18 mmol/L (21-32); CREATININE 3.7 mg/dl (0.6-1.3); GLUCOSE,RANDOM 99 mg/dl (74-106); SGOT/AST 10 U/L (15-37); SGPT/ALT 6 U/L (7-52); SODIUM 140 mmol/L (136-145); TOT PROT 6.4 g/dl (6.4-8.2)
[2024-04-12 09:22] LABS: HEMATOCRIT 25.2 % (35.4-49); HEMOGLOBIN 8.4 GM/dL (11.7-16.9); MCH 27.7 pg (25.7-33.7); MCHC 33.2 g/dl (32.0-35.9); MEAN CELL VOLUME 83.5 fl (80-96); MEAN PLT VOLUME 9.7 fl (7.5-11.1); PLATELET COUNT 117 10^3/uL (134-434); RBC 3.02 M/mm3 (4.00-5.60); RDW 14.9 % (11.9-15.9); WHITE BLOOD COUNT 2.9 K/mm3 (4.0-10.0)
[2024-04-12 10:03] VITALS: BP 154/64; PULSE 67; TEMP 98.1
[2024-04-12] MEDS: FAMOTIDINE 10 MG TABLET PO SCH (10:08)
[2024-04-12] MEDS: LACTOBACILLUS ACIDOPHILUS 1 TABLET PO SCH (10:08)
[2024-04-12 10:13] LABS: ANISOCYTOSIS 0; MACROCYTOSIS 0
[2024-04-12 18:09] LABS: FREE KAPPA,SERUM 110.1 mg/L (3.3-19.4)
== END 2024-04-12 12:24 | disposition home or self-care (01) ==
LOC: FER 15:54 → FM/S 22:23
PROVIDERS: ADMIT Internal Medicine
PROC: 0H91XZZ Drainage of Face Skin, External Approach (ICD-10-PCS; principal; 2024-04-09)
PROC: 3E03329 Introduction of Other Anti-infective into Peripheral Vein, Percutaneous Approach (ICD-10-PCS; 2024-04-09)
DX: L02.01 Cutaneous abscess of face (principal); L03.90 Cellulitis, unspecified; E11.22 Type 2 diabetes mellitus with diabetic chronic kidney disease; I12.9 Hypertensive chronic kidney disease with stage 1 through stage 4 chronic kidney disease, or unspecified chronic kidney disease; N18.4 Chronic kidney disease, stage 4 (severe); D64.9 Anemia, unspecified; N28.9 Disorder of kidney and ureter, unspecified; N40.0 Benign prostatic hyperplasia without lower urinary tract symptoms; N17.9 Acute kidney failure, unspecified
CPT/HCPCS: 17999; 36415; 70486-TC; 76775-TC; 80048; 80053; 82962; 83883; 84155; 84165; 85025; 87081; 96365; 96366; 99285-25; G0378; G0480; J1644

== ENCOUNTER 2024-04-21 02:53 | Emergency (ER) | payer OTHER, BC ==
[2024-04-21 03:04] VITALS: BP 168/75; PULSE 46; RESP 18; TEMP 97.4; BMI 25.7
[2024-04-21 04:30] LABS: BASO % 0.4 % (0-2.0); EOS % 0.5 % (0-4.5); HEMATOCRIT 26.4 % (35.4-49); HEMOGLOBIN 8.8 GM/dL (11.7-16.9); LYMPH % 24.9 % (8-40); MCH 27.2 pg (25.7-33.7); MCHC 33.3 g/dl (32.0-35.9); MEAN CELL VOLUME 81.6 fl (80-96); MEAN PLT VOLUME 9.7 fl (7.5-11.1); MONO % 14.6 % (3.8-10.2); NEUT % 59.6 % (42.8-82.8); PLATELET COUNT 135 10^3/uL (134-434); RBC 3.23 M/mm3 (4.00-5.60); RDW 15.1 % (11.9-15.9); WHITE BLOOD COUNT 4.2 K/mm3 (4.0-10.0)
[2024-04-21 04:33] LABS: EPI CELLS 7 /uL (0-25.1); HYALINE CASTS 1 /uL (0-3.1); PH,URINE 5.5 (5.0-8.0); URINE APPEARANCE CLEAR; URINE BACTERIA 8 /uL (0-1359); URINE BILIRUBIN NEGATIVE (NEGATIVE); URINE COLOR YELLOW; URINE GLUCOSE (UA) NEGATIVE (NEGATIVE); URINE KETONE NEGATIVE (NEGATIVE); URINE LEUK ESTERASE NEGATIVE (NEGATIVE); URINE NITRITE NEGATIVE (NEGATIVE); URINE PROTEIN 2+ (NEGATIVE); URINE UROBILINOGEN 0.2 mg/dL (0.2-1.0); URINE WBC 11 /uL (0-25.8)
[2024-04-21 04:50] LABS: POTASSIUM 5.8 mmol/L (3.5-5.1)
[2024-04-21 04:52] LABS: CALCIUM 8.4 mg/dL (8.5-10.1)
[2024-04-21 04:53] LABS: ALBUMIN 3.5 g/dl (3.4-5.0); BLOOD UREA NITROGEN 69.8 mg/dL (7-18)
[2024-04-21 04:56] LABS: CREATININE 4.4 mg/dL (0.55-1.3)
[2024-04-21 04:57] LABS: BILIRUBIN,TOTAL 0.3 mg/dL (0.2-1); TOT PROT 6.8 g/dl (6.4-8.2)
[2024-04-21] MEDS ORDERED: SODIUM ZIRCONIUM CYCLOSILICATE (LOKELMA) 5 GM PACKET ONE (06:00)
[2024-04-21 06:04] LABS: URINE RBC REVIEW /uL (0-23.9)
[2024-04-21] MEDS ORDERED: SODIUM ZIRCONIUM CYCLOSILICATE (LOKELMA) 5 GM PACKET PO SCH (10:00)
== END 2024-04-21 06:12 | disposition home or self-care (01) ==
LOC: FER 02:53
DX: I12.9 Hypertensive chronic kidney disease with stage 1 through stage 4 chronic kidney disease, or unspecified chronic kidney disease (principal); N18.9 Chronic kidney disease, unspecified; E87.5 Hyperkalemia; R06.02 Shortness of breath
CPT/HCPCS: 36415; 71045-TC-FY; 80053; 81003; 84484; 85025; 93005; 99285-25

== ENCOUNTER 2024-07-28 04:27 | Day surgery (SDC) | payer OTHER, BC ==
[2024-07-25 16:19] VITALS: BMI 31.3
[2024-07-28] MEDS ORDERED: PROPOFOL 20 ML ONE (12:04)
[2024-07-28] MEDS ORDERED: DEXAMETHASONE SOD PHOSPHATE 4 MG/1 ML VIAL ONE (12:04)
[2024-07-28] MEDS ORDERED: MIDAZOLAM HCL 2 MG/2 ML SINGLE DOSE VIAL ONE (12:05)
[2024-07-28] MEDS ORDERED: LIDOCAINE HCL 2% (20ML MULTI-DOSE VIAL) ONE (12:12)
[2024-07-28] MEDS ORDERED: ROPIVACAINE HCL 0.5% 30ML VIAL ONE (12:12)
[2024-07-28] MEDS ORDERED: ONDANSETRON 4 MG/2 ML VIAL IVPUSH PRN (12:27)
[2024-07-28] MEDS ORDERED: SODIUM CHLORIDE 1,000 ML IV SCH (12:30)
[2024-07-28] MEDS ORDERED: ceFAZolin SODIUM 1 GM VIAL ONE (13:05)
[2024-07-28] MEDS: ceFAZolin SODIUM 1 GM VIAL IVPB ONE (13:05)
[2024-07-28] MEDS ORDERED: ONDANSETRON 4 MG/2 ML VIAL ONE (13:29)
[2024-07-28] MEDS: POVIDONE-IODINE OINTMENT 10% - 28.4 GM TUBE TP ONE (13:45)
[2024-07-28 16:15] VITALS: RESP 20; TEMP 97.3
[2024-07-28 16:18] VITALS: BP 134/62; PULSE 60
== END 2024-07-28 16:00 | disposition home or self-care (01) ==
LOC: JASU-SURG 04:27
PROVIDERS: ATTEND Surgery
PROC: 031C3ZF Bypass Left Radial Artery to Lower Arm Vein, Percutaneous Approach (ICD-10-PCS; principal; 2024-07-28 13:00)
DX: I12.0 Hypertensive chronic kidney disease with stage 5 chronic kidney disease or end stage renal disease (principal); N18.5 Chronic kidney disease, stage 5; K21.9 Gastro-esophageal reflux disease without esophagitis; F41.9 Anxiety disorder, unspecified; E78.1 Pure hyperglyceridemia; G47.00 Insomnia, unspecified; N28.1 Cyst of kidney, acquired
CPT/HCPCS: 82962

== ENCOUNTER 2024-08-18 17:32 | Inpatient (IN) | payer OTHER, BC ==
[2024-08-18 18:36] LABS: BASO % 0.2 % (0-2.0); EOS % 0.4 % (0-4.5); HEMOGLOBIN 7.6 GM/dL (11.7-16.9); LYMPH % 8.4 % (8-40); MCH 26.8 pg (25.7-33.7); MCHC 32.9 g/dl (32.0-35.9); MEAN CELL VOLUME 81.5 fl (80-96); MEAN PLT VOLUME 9.1 fl (7.5-11.1); MONO % 9.2 % (3.8-10.2); NEUT % 81.8 % (42.8-82.8); PLATELET COUNT 133 10^3/uL (134-434); RBC 2.82 M/mm3 (4.00-5.60); RDW 16.8 % (11.9-15.9); WHITE BLOOD COUNT 5.6 K/mm3 (4.0-10.0)
[2024-08-18 18:41] LABS: VENOUS BASE EXCESS -9.6 mmol/L (-2-2); VENOUS PCO2 34.5 mmHg (38-52); VENOUS PH 7.288 (7.310-7.410)
[2024-08-18 18:43] LABS: INR 1.16 (0.83-1.09)
[2024-08-18 18:46] LABS: ACTIVATED PTT 28.7 SECONDS (25.2-36.5)
[2024-08-18] MEDS ORDERED: CARVEDILOL 25 MG TABLET (FP) ONE (18:53)
[2024-08-18 18:56] LABS: POTASSIUM 4.9 mmol/L (3.5-5.1)
[2024-08-18 18:58] LABS: CALCIUM 8.5 mg/dL (8.5-10.1)
[2024-08-18 18:59] LABS: ALBUMIN 3.3 g/dl (3.4-5.0); BLOOD UREA NITROGEN 61.2 mg/dL (7-18); MAGNESIUM 2.2 mg/dL (1.8-2.4)
[2024-08-18 19:02] LABS: CREATININE 4.3 mg/dL (0.55-1.3); PHOSPHOROUS 4.8 mg/dL (2.5-4.9)
[2024-08-18 19:03] LABS: BILIRUBIN,TOTAL 0.4 mg/dL (0.2-1)
[2024-08-18] MEDS: CARVEDILOL 25 MG TABLET (FP) PO ONE (19:04)
[2024-08-18] MEDS ORDERED: FUROSEMIDE 40 MG/4 ML INJECTABLE VIAL ONE (19:38)
[2024-08-18 19:52] LABS: VENOUS BASE EXCESS -9.6 mmol/L (-2-2); VENOUS O2 SATURATION 91.1 % (70-80); VENOUS PCO2 32.6 mmHg (38-52); VENOUS PH 7.304 (7.310-7.410)
[2024-08-18] MEDS: FUROSEMIDE 40 MG/4 ML INJECTABLE VIAL IVPUSH ONE (19:55)
[2024-08-18] MEDS: INSULIN ASPART SLIDING SCALE (NOVOLOG) 1 VIAL SQ SCH (21:13)
[2024-08-18] MEDS: FUROSEMIDE 40 MG/4 ML INJECTABLE VIAL IVPUSH SCH (23:45)
[2024-08-19] MEDS: FUROSEMIDE 40 MG/4 ML INJECTABLE VIAL IVPUSH SCH ×2 (06:12→14:06)
[2024-08-19] MEDS: CARVEDILOL 12.5 MG TABLET (FP) PO SCH (06:13)
[2024-08-19 08:14] LABS: POTASSIUM 4.7 mmol/L (3.5-5.1)
[2024-08-19 08:27] LABS: HEMATOCRIT 20.8 % (35.4-49); MEAN CELL VOLUME 81.8 fl (80-96); MEAN PLT VOLUME 9.9 fl (7.5-11.1); PLATELET COUNT 117 10^3/uL (134-434); RBC 2.55 M/mm3 (4.00-5.60); RDW 16.6 % (11.9-15.9); WHITE BLOOD COUNT 3.4 K/mm3 (4.0-10.0)
[2024-08-19 08:30] LABS: ALBUMIN 3.2 g/dl (3.4-5.0); CALCIUM 8.7 mg/dL (8.5-10.1)
[2024-08-19 08:31] LABS: MAGNESIUM 2.2 mg/dL (1.8-2.4)
[2024-08-19 08:33] LABS: CREATININE 4.3 mg/dL (0.55-1.3); PHOSPHOROUS 4.2 mg/dL (2.5-4.9)
[2024-08-19 08:35] LABS: BILIRUBIN,TOTAL 0.5 mg/dL (0.2-1); TOT PROT 6.6 g/dl (6.4-8.2)
[2024-08-19 08:39] LABS: HEMOGLOBIN 6.9 GM/dL (11.7-16.9)
[2024-08-19] MEDS: CLOPIDOGREL BISULFATE 75 MG TABLET (FP) PO SCH (09:17)
[2024-08-19] MEDS: amLODIPine BESYLATE 10 MG TABLET (FP) PO SCH (09:17)
[2024-08-19] MEDS: TAMSULOSIN HCL 0.4 MG CAP PO SCH (09:17)
[2024-08-19 09:39] LABS: ANISOCYTOSIS 0; HELMET CELLS 0; HOWELL-JOLLY BODIES 0; MACROCYTOSIS 0; OVALOCYTE 0; ROULEAU 0; SICKELED CELLS 0; TARGET CELLS 0; TEAR DROP CELLS 0; TOXIC GRANULATION 0
[2024-08-19] MEDS ORDERED: CLOPIDOGREL BISULFATE 75 MG TABLET (FP) PO SCH (10:00)
[2024-08-19] MEDS ORDERED: amLODIPine BESYLATE 10 MG TABLET (FP) PO SCH (10:00)
[2024-08-19] MEDS: ATORVASTATIN CA 80 MG TABLET (FP) PO SCH (21:06)
[2024-08-19] MEDS: CARVEDILOL 25 MG TABLET (FP) PO SCH (21:06)
[2024-08-19] MEDS: MELATONIN 5 MG TABLETS PO PRN (21:45)
[2024-08-19 21:47] LABS: HEMATOCRIT 24.5 % (35.4-49); HEMOGLOBIN 8.1 GM/dL (11.7-16.9); MCHC 33.2 g/dl (32.0-35.9); MEAN CELL VOLUME 81.3 fl (80-96); MEAN PLT VOLUME 9.7 fl (7.5-11.1); PLATELET COUNT 126 10^3/uL (134-434); RBC 3.02 M/mm3 (4.00-5.60); RDW 16.7 % (11.9-15.9); WHITE BLOOD COUNT 4.2 K/mm3 (4.0-10.0)
[2024-08-19 22:20] LABS: ANISOCYTOSIS 2+; MACROCYTOSIS 0; OVALOCYTE 1+
[2024-08-20 08:19] LABS: HEMATOCRIT 24.9 % (35.4-49); HEMOGLOBIN 8.2 GM/dL (11.7-16.9); MCH 26.8 pg (25.7-33.7); MCHC 32.9 g/dl (32.0-35.9); MEAN CELL VOLUME 81.6 fl (80-96); MEAN PLT VOLUME 9.6 fl (7.5-11.1); PLATELET COUNT 121 10^3/uL (134-434); RBC 3.05 M/mm3 (4.00-5.60); RDW 16.5 % (11.9-15.9); WHITE BLOOD COUNT 4.3 K/mm3 (4.0-10.0)
[2024-08-20 08:36] LABS: POTASSIUM 4.1 mmol/L (3.5-5.1)
[2024-08-20 08:40] LABS: CALCIUM 8.1 mg/dL (8.5-10.1)
[2024-08-20 08:41] LABS: ALBUMIN 3.2 g/dl (3.4-5.0); BLOOD UREA NITROGEN 60.4 mg/dL (7-18)
[2024-08-20 08:45] LABS: BILIRUBIN,TOTAL 0.8 mg/dL (0.2-1); TOT PROT 6.8 g/dl (6.4-8.2)
[2024-08-20 09:58] LABS: ANISOCYTOSIS 0; HELMET CELLS 0; HOWELL-JOLLY BODIES 0; MACROCYTOSIS 0; OVALOCYTE 0; ROULEAU 0; SICKELED CELLS 0; TARGET CELLS 0; TEAR DROP CELLS 0; TOXIC GRANULATION 0
[2024-08-21 00:46] VITALS: RESP 20
[2024-08-21 14:00] LABS: HEMATOCRIT 27.9 % (35.4-49); MCH 26.8 pg (25.7-33.7); MCHC 32.2 g/dl (32.0-35.9); MEAN CELL VOLUME 83.1 fl (80-96); MEAN PLT VOLUME 10.1 fl (7.5-11.1); PLATELET COUNT 133 10^3/uL (134-434); RBC 3.35 M/mm3 (4.00-5.60); RDW 16.8 % (11.9-15.9); WHITE BLOOD COUNT 4.4 K/mm3 (4.0-10.0)
[2024-08-21 14:49] LABS: ANISOCYTOSIS 0; MACROCYTOSIS 0
[2024-08-21 15:41] VITALS: BMI 30.9
[2024-08-21 16:00] LABS: CALCIUM 9.1 mg/dL (8.5-10.1)
[2024-08-21 16:03] LABS: ALBUMIN 3.6 g/dl (3.4-5.0); BLOOD UREA NITROGEN 81.7 mg/dL (7-18)
[2024-08-21 16:04] LABS: CREATININE 5.5 mg/dL (0.55-1.3); TOT PROT 7.4 g/dl (6.4-8.2)
[2024-08-21 16:06] LABS: BILIRUBIN,TOTAL 0.5 mg/dL (0.2-1)
[2024-08-22 07:27] LABS: HEMATOCRIT 26.1 % (35.4-49); HEMOGLOBIN 8.6 GM/dL (11.7-16.9); MCH 27.1 pg (25.7-33.7); MCHC 33.1 g/dl (32.0-35.9); MEAN PLT VOLUME 9.6 fl (7.5-11.1); PLATELET COUNT 124 10^3/uL (134-434); RBC 3.18 M/mm3 (4.00-5.60); RDW 16.5 % (11.9-15.9); WHITE BLOOD COUNT 5.1 K/mm3 (4.0-10.0)
[2024-08-22 07:52] LABS: POTASSIUM 3.8 mmol/L (3.5-5.1)
[2024-08-22 08:08] LABS: ALBUMIN 3.5 g/dl (3.4-5.0); BLOOD UREA NITROGEN 91.1 mg/dL (7-18); CALCIUM 8.5 mg/dL (8.5-10.1)
[2024-08-22 08:12] LABS: CREATININE 5.9 mg/dL (0.55-1.3)
[2024-08-22 08:13] LABS: BILIRUBIN,TOTAL 0.5 mg/dL (0.2-1); TOT PROT 7.1 g/dl (6.4-8.2)
[2024-08-22] MEDS: TORSEMIDE 20 MG TABLET (FP) PO SCH (09:37)
[2024-08-22 10:04] LABS: ANISOCYTOSIS 2+; MACROCYTOSIS 0
[2024-08-22 12:32] VITALS: BP 135/57; PULSE 67; TEMP 98.4
== END 2024-08-22 13:10 | disposition home or self-care (01) | DRG 682 ==
LOC: JER 17:32 → JERBED 20:41 → J4W 08-19 00:21
PROVIDERS: ADMIT Internal Medicine; ATTEND Internal Medicine
DX: I12.0 Hypertensive chronic kidney disease with stage 5 chronic kidney disease or end stage renal disease (principal); J81.0 Acute pulmonary edema; N18.6 End stage renal disease; J96.01 Acute respiratory failure with hypoxia; E87.20 Acidosis, unspecified; I47.10 Supraventricular tachycardia, unspecified; I47.19 Other supraventricular tachycardia; J90 Pleural effusion, not elsewhere classified; N40.0 Benign prostatic hyperplasia without lower urinary tract symptoms; E87.70 Fluid overload, unspecified; E11.22 Type 2 diabetes mellitus with diabetic chronic kidney disease; D63.8 Anemia in other chronic diseases classified elsewhere; I45.9 Conduction disorder, unspecified; Z99.2 Dependence on renal dialysis; Z96.641 Presence of right artificial hip joint
CPT/HCPCS: 0241U-QW; 36415; 36430; 71045-TC-FY; 76604; 80053; 80061; 82607; 82728; 82746; 82803; 82962; 83036; 83540; 83550; 83605; 83735; 83880; 84100; 84466; 84484; 85025; 85045; 85610; 85730; 86850; 86900; 86901; 86922; 93005; 93010; 93306-TC; 93308; 94660; 97116-GP; 97161-GP; 99285-25; P9058

== ENCOUNTER 2024-09-04 14:28 | Day surgery (SDC) | payer OTHER, BC ==
[2024-09-04 15:20] LABS: BASO % 0.5 % (0-2.0); EOS % 0.3 % (0-4.5); HEMATOCRIT 27.9 % (35.4-49); HEMOGLOBIN 9.2 GM/dL (11.7-16.9); MCH 26.7 pg (25.7-33.7); MCHC 32.9 g/dl (32.0-35.9); MEAN CELL VOLUME 81.2 fl (80-96); MEAN PLT VOLUME 9.6 fl (7.5-11.1); MONO % 18.9 % (3.8-10.2); NEUT % 68.3 % (42.8-82.8); PLATELET COUNT 219 10^3/uL (134-434); RBC 3.43 M/mm3 (4.00-5.60); RDW 16.3 % (11.9-15.9)
[2024-09-04] MEDS: IRON SUCROSE INJECTION 200 MG in SODIUM CHLORIDE 100 ML IVPB ONE (16:05)
[2024-09-04 16:59] VITALS: BP 119/51; PULSE 67; RESP 16; TEMP 97.3
== END 2024-09-04 17:10 | disposition home or self-care (01) ==
LOC: JONCCHEMO 14:28 → J7W 14:34 → JONCCHEMO 17:10
PROVIDERS: ATTEND Internal Medicine Hematology & Oncology
PROC: 3E033GC Introduction of Other Therapeutic Substance into Peripheral Vein, Percutaneous Approach (ICD-10-PCS; principal; 2024-09-04)
DX: D64.9 Anemia, unspecified (principal)
CPT/HCPCS: 36415; 85025; 86850; 86900; 86901; 96365; J1756

== ENCOUNTER 2024-09-07 22:31 | Inpatient (IN) | payer OTHER, BC ==
[2024-09-07] MEDS ORDERED: MAG HYDROX/AL HYDROX/SIMETH 30 ML UNIT-DOSE CUP ONE (23:26)
[2024-09-07] MEDS ORDERED: ACETAMINOPHEN INJECTION 100 ML ONE (23:26)
[2024-09-07] MEDS ORDERED: FAMOTIDINE 20 MG/50 ML IVPB 20 MG/50 ML MG IVPB ONE (23:27)
[2024-09-07] MEDS: ACETAMINOPHEN 1000 MG/100 ML BAG IVPB ONE (23:42)
[2024-09-07] MEDS: FAMOTIDINE 20 MG/50 ML IVPB 20 MG/50 ML MG IVPB ONE (23:42)
[2024-09-07] MEDS: MAG HYDROX/AL HYDROX/SIMETH 30 ML UNIT-DOSE CUP PO ONE (23:42)
[2024-09-07 23:50] LABS: BASO % 0.5 % (0-2.0); EOS % 0.3 % (0-4.5); HEMATOCRIT 27.9 % (35.4-49); HEMOGLOBIN 9.3 GM/dL (11.7-16.9); MCH 26.6 pg (25.7-33.7); MCHC 33.5 g/dl (32.0-35.9); MEAN CELL VOLUME 79.5 fl (80-96); MEAN PLT VOLUME 9.5 fl (7.5-11.1); MONO % 12.4 % (3.8-10.2); NEUT % 81.8 % (42.8-82.8); PLATELET COUNT 207 10^3/uL (134-434); RBC 3.51 M/mm3 (4.00-5.60); RDW 16.7 % (11.9-15.9)
[2024-09-08] LABS: INR 1.16 (0.83-1.09); PROTHROMBIN TIME (PATIENT) 13.3 SEC (9.7-13.0)
[2024-09-08 00:03] LABS: ACTIVATED PTT 27.7 SECONDS (25.2-36.5)
[2024-09-08 00:08] LABS: CHLORIDE 110 mmol/L (98-107); POTASSIUM 4.3 mmol/L (3.5-5.1); SODIUM 139 mmol/L (136-145)
[2024-09-08 00:10] LABS: ALBUMIN 3.4 g/dl (3.4-5.0); CALCIUM 8.9 mg/dL (8.5-10.1)
[2024-09-08 00:11] LABS: ANION GAP 14 mmol/L (4-13); CO2 15 mmol/L (21-32); GLUCOSE,RANDOM 165 mg/dL (74-106); MAGNESIUM 2.5 mg/dL (1.8-2.4)
[2024-09-08 00:14] LABS: SGOT/AST 16 U/L (15-37); SGPT/ALT 19 U/L (13-61)
[2024-09-08 00:15] LABS: BILIRUBIN,TOTAL 0.3 mg/dL (0.2-1); BLOOD UREA NITROGEN 143.8 mg/dL (7-18); CREATININE 7.4 mg/dL (0.55-1.3); TOT PROT 7.6 g/dl (6.4-8.2)
[2024-09-08 00:17] LABS: ALK PHOS 68 U/L (45-117)
[2024-09-08 02:02] LABS: EPI CELLS 2 /uL (0-25.1); HYALINE CASTS 0 /uL (0-3.1); PH,URINE 5.5 (5.0-8.0); URINE APPEARANCE CLOUDY; URINE BACTERIA >9,000 /uL (0-1359); URINE BILIRUBIN NEGATIVE (NEGATIVE); URINE COLOR YELLOW; URINE GLUCOSE (UA) NEGATIVE (NEGATIVE); URINE KETONE NEGATIVE (NEGATIVE); URINE LEUK ESTERASE 3+ (NEGATIVE); URINE NITRITE NEGATIVE (NEGATIVE); URINE PROTEIN 2+ (NEGATIVE); URINE RBC 48 /uL (0-23.9); URINE UROBILINOGEN 0.2 mg/dL (0.2-1.0); URINE WBC 2331 /uL (0-25.8)
[2024-09-08] MEDS ORDERED: CEFTRIAXONE 1 GM/50 ML BAG ONE (02:15)
[2024-09-08] MEDS: CEFTRIAXONE 1 GM in DEXTROSE 5%-WATER - 100 ML IVPB ONE (02:24)
[2024-09-08] MEDS ORDERED: CEFTRIAXONE 1 G/50 ML PREMIX 50 ML IVPB ONE (02:32)
[2024-09-08 05:37] LABS: ARTERIAL BLD GAS O2 SATURATION 96.8 % (95-98); ARTERIAL BLOOD GAS BASE EXCESS -7.5 mmol/L (-2-2); ARTERIAL BLOOD GAS PO2 86.5 mmHg (80-100); ARTERIAL BLOOD GAS pH 7.409 (7.350-7.450)
[2024-09-08] MEDS ORDERED: HEPARIN NA (PORCINE) 5,000 UNITS/ML 1ML VIAL ONE ×2 (06:18→22:59)
[2024-09-08] MEDS: HEPARIN NA (PORCINE) 5,000 UNITS/ML 1ML VIAL SQ SCH (06:28)
[2024-09-08] MEDS ORDERED: CARVEDILOL 6.25 MG TABLET (FP) ONE (07:23)
[2024-09-08 07:29] LABS: HEMATOCRIT 27.5 % (35.4-49); HEMOGLOBIN 8.9 GM/dL (11.7-16.9); MCH 25.6 pg (25.7-33.7); MCHC 32.3 g/dl (32.0-35.9); MEAN CELL VOLUME 79.3 fl (80-96); MEAN PLT VOLUME 9.5 fl (7.5-11.1); PLATELET COUNT 177 10^3/uL (134-434); RBC 3.46 M/mm3 (4.00-5.60); RDW 16.6 % (11.9-15.9); WHITE BLOOD COUNT 12.3 K/mm3 (4.0-10.0)
[2024-09-08] MEDS: CARVEDILOL 12.5 MG TABLET (FP) PO SCH (07:40)
[2024-09-08] MEDS ORDERED: INSULIN ASPART SLIDING SCALE (NOVOLOG) 1 VIAL SQ ONE (07:42)
[2024-09-08] MEDS: INSULIN ASPART SLIDING SCALE (NOVOLOG) 1 VIAL SQ SCH (07:49)
[2024-09-08 07:53] LABS: CHLORIDE 108 mmol/L (98-107); SODIUM 137 mmol/L (136-145)
[2024-09-08 07:55] LABS: CALCIUM 8.4 mg/dL (8.5-10.1)
[2024-09-08 07:56] LABS: ALBUMIN 3.3 g/dl (3.4-5.0); ANION GAP 12 mmol/L (4-13); CO2 17 mmol/L (21-32); GLUCOSE,RANDOM 175 mg/dL (74-106); MAGNESIUM 2.5 mg/dL (1.8-2.4)
[2024-09-08 07:59] LABS: PHOSPHOROUS 5.8 mg/dL (2.5-4.9); SGOT/AST 10 U/L (15-37); SGPT/ALT 18 U/L (13-61)
[2024-09-08 08:00] LABS: BILIRUBIN,TOTAL 0.4 mg/dL (0.2-1); TOT PROT 7.2 g/dl (6.4-8.2)
[2024-09-08 08:02] LABS: ALK PHOS 66 U/L (45-117)
[2024-09-08 08:21] LABS: CREATININE 7.4 mg/dL (0.55-1.3)
[2024-09-08 08:25] LABS: BLOOD UREA NITROGEN 147.8 mg/dL (7-18)
[2024-09-08] MEDS ORDERED: FAMOTIDINE 10 MG TABLET ONE (08:53)
[2024-09-08] MEDS: TAMSULOSIN HCL 0.4 MG CAP PO SCH (08:59)
[2024-09-08] MEDS: FAMOTIDINE 10 MG TABLET PO SCH (09:01)
[2024-09-08] MEDS: amLODIPine BESYLATE 10 MG TABLET (FP) PO SCH (09:01)
[2024-09-08] MEDS: CLOPIDOGREL BISULFATE 75 MG TABLET (FP) PO SCH (09:01)
[2024-09-08] MEDS ORDERED: LIDOCAINE HCL 1%, 10 MG/ML (20ML VIAL) ONE (11:58)
[2024-09-08] MEDS: LIDOCAINE HCL 1%, 10 MG/ML (50 mL VIAL) SQ ONE (12:00)
[2024-09-08] MEDS ORDERED: SODIUM CHLORIDE 250 ML IV PRN (13:25)
[2024-09-08] MEDS ORDERED: traMADol HCL 50 MG TABLET PO PRN (16:46)
[2024-09-08] MEDS ORDERED: MORPHINE SULFATE 2 MG/ML SYRINGE IVPUSH PRN (17:25)
[2024-09-08] MEDS ORDERED: ATORVASTATIN CA 80 MG TABLET (FP) ONE (22:58)
[2024-09-08] MEDS ORDERED: CARVEDILOL 25 MG TABLET (FP) ONE (22:59)
[2024-09-08] MEDS: CARVEDILOL 25 MG TABLET (FP) PO SCH (23:13)
[2024-09-08] MEDS: ATORVASTATIN CA 80 MG TABLET (FP) PO SCH (23:13)
[2024-09-09 07:45] LABS: HEMATOCRIT 26.2 % (35.4-49); HEMOGLOBIN 8.6 GM/dL (11.7-16.9); MCH 26.2 pg (25.7-33.7); MCHC 32.7 g/dl (32.0-35.9); MEAN CELL VOLUME 80.2 fl (80-96); PLATELET COUNT 154 10^3/uL (134-434); RBC 3.27 M/mm3 (4.00-5.60); RDW 16.6 % (11.9-15.9); WHITE BLOOD COUNT 13.7 K/mm3 (4.0-10.0)
[2024-09-09] MEDS ORDERED: SODIUM CHLORIDE 250 ML IV PRN (08:03)
[2024-09-09 08:11] LABS: CHLORIDE 103 mmol/L (98-107); POTASSIUM 3.9 mmol/L (3.5-5.1); SODIUM 135 mmol/L (136-145)
[2024-09-09 08:20] LABS: CALCIUM 8.8 mg/dL (8.5-10.1)
[2024-09-09 08:21] LABS: ANION GAP 12 mmol/L (4-13); CO2 20 mmol/L (21-32); GLUCOSE,RANDOM 125 mg/dL (74-106); SGPT/ALT 16 U/L (13-61)
[2024-09-09 08:23] LABS: BILIRUBIN,TOTAL 0.5 mg/dL (0.2-1); SGOT/AST 31 U/L (15-37); TOT PROT 6.6 g/dl (6.4-8.2)
[2024-09-09 08:24] LABS: ALK PHOS 58 U/L (45-117); CREATININE 6.5 mg/dL (0.55-1.3)
[2024-09-09 08:30] LABS: BLOOD UREA NITROGEN 105.3 mg/dL (7-18)
[2024-09-09] MEDS: EPOETIN ALFA-EPBX 10,000 UNIT/ML VIAL SQ SCH (09:42)
[2024-09-09] MEDS: CEFTRIAXONE 1 G/50 ML PREMIX 50 ML IVPB SCH (12:47)
[2024-09-09] MEDS: CARVEDILOL 6.25 MG TABLET (FP) PO SCH (22:35)
[2024-09-10] MEDS: CARVEDILOL 6.25 MG TABLET (FP) PO SCH (07:33)
[2024-09-10 09:01] LABS: HEMATOCRIT 23.6 % (35.4-49); HEMOGLOBIN 7.9 GM/dL (11.7-16.9); MCH 26.8 pg (25.7-33.7); MCHC 33.5 g/dl (32.0-35.9); PLATELET COUNT 130 10^3/uL (134-434); RBC 2.95 M/mm3 (4.00-5.60); RDW 16.1 % (11.9-15.9); WHITE BLOOD COUNT 10.5 K/mm3 (4.0-10.0)
[2024-09-10 09:38] LABS: ALBUMIN 2.7 g/dl (3.4-5.0); BLOOD UREA NITROGEN 84.8 mg/dL (7-18)
[2024-09-10 09:40] LABS: CALCIUM 8.3 mg/dL (8.5-10.1); CREATININE 6.4 mg/dL (0.55-1.3); MAGNESIUM 2.2 mg/dL (1.8-2.4); PHOSPHOROUS 5.4 mg/dL (2.5-4.9)
[2024-09-10 09:42] LABS: BILIRUBIN,TOTAL 0.4 mg/dL (0.2-1); TOT PROT 6.2 g/dl (6.4-8.2)
[2024-09-10] MEDS: traMADol HCL 50 MG TABLET PO PRN (11:28)
[2024-09-10] MEDS ORDERED: SODIUM CHLORIDE 250 ML IV PRN (16:02)
[2024-09-10] MEDS ORDERED: METOPROLOL TARTRATE 5 MG/5 ML VIAL IVPUSH PRN (19:46)
[2024-09-10] MEDS: ERTAPENEM SODIUM 0.5 GM in SODIUM CHLORIDE 50 ML IVPB SCH (20:34)
[2024-09-11] MEDS: METOPROLOL TARTRATE 25 MG TABLET (FP) PO SCH ×2 (01:09→12:27)
[2024-09-11] MEDS ORDERED: METOPROLOL TARTRATE 25 MG TABLET (FP) PO SCH (10:00)
[2024-09-11 10:20] LABS: HEMATOCRIT 22.3 % (35.4-49); HEMOGLOBIN 7.4 GM/dL (11.7-16.9); MCH 26.7 pg (25.7-33.7); MCHC 33.3 g/dl (32.0-35.9); MEAN CELL VOLUME 80.1 fl (80-96); MEAN PLT VOLUME 10.3 fl (7.5-11.1); PLATELET COUNT 120 10^3/uL (134-434); RBC 2.78 M/mm3 (4.00-5.60); RDW 16.7 % (11.9-15.9)
[2024-09-11 10:56] LABS: CHLORIDE 95 mmol/L (98-107); POTASSIUM 4.4 mmol/L (3.5-5.1); SODIUM 131 mmol/L (136-145)
[2024-09-11 10:59] LABS: ANION GAP 12 mmol/L (4-13); CALCIUM 8.2 mg/dL (8.5-10.1); CO2 23 mmol/L (21-32); GLUCOSE,RANDOM 139 mg/dL (74-106)
[2024-09-11 11:00] LABS: ALBUMIN 2.5 g/dl (3.4-5.0)
[2024-09-11 11:03] LABS: CREATININE 7.9 mg/dL (0.55-1.3); SGOT/AST 30 U/L (15-37); SGPT/ALT 18 U/L (13-61)
[2024-09-11 11:04] LABS: BILIRUBIN,TOTAL 0.3 mg/dL (0.2-1); TOT PROT 6.3 g/dl (6.4-8.2)
[2024-09-11 11:05] LABS: ALK PHOS 58 U/L (45-117)
[2024-09-11] MEDS: APIXABAN 2.5 MG TABLET PO SCH (12:28)
[2024-09-11] MEDS: IRON SUCROSE INJECTION 200 MG in SODIUM CHLORIDE 100 ML IVPB ONE (18:02)
[2024-09-11] MEDS: ENOXAPARIN NA (PORCINE) 60 MG/0.6 ML DISP.SYRIN SQ ONE (21:06)
[2024-09-12] MEDS: MELATONIN 5 MG TABLETS PO ONE (05:18)
[2024-09-12] MEDS ORDERED: LIDOCAINE HCL 1%, 10 MG/ML (20ML VIAL) ONE (11:11)
[2024-09-12 11:26] LABS: HEMATOCRIT 19.7 % (35.4-49); MCH 26.3 pg (25.7-33.7); MCHC 33.3 g/dl (32.0-35.9); PLATELET COUNT 114 10^3/uL (134-434); RDW 16.7 % (11.9-15.9); WHITE BLOOD COUNT 8.3 K/mm3 (4.0-10.0)
[2024-09-12 11:30] LABS: HEMOGLOBIN 6.6 GM/dL (11.7-16.9)
[2024-09-12 11:41] LABS: INR 1.12 (0.83-1.09); PROTHROMBIN TIME (PATIENT) 12.6 SEC (9.7-13.0)
[2024-09-12 12:20] LABS: POTASSIUM 3.8 mmol/L (3.5-5.1)
[2024-09-12 12:26] LABS: CALCIUM 7.9 mg/dL (8.5-10.1); MAGNESIUM 2.1 mg/dL (1.8-2.4)
[2024-09-12 12:29] LABS: PHOSPHOROUS 4.5 mg/dL (2.5-4.9)
[2024-09-12 12:30] LABS: BILIRUBIN,TOTAL 0.3 mg/dL (0.2-1)
[2024-09-12] MEDS: VITAMIN B COMP W-C 1 EA TABLET (NEPHRO-VITE) PO SCH (15:40)
[2024-09-12 19:23] LABS: HEMATOCRIT 25.8 % (35.4-49); HEMOGLOBIN 8.5 GM/dL (11.7-16.9); MCH 26.6 pg (25.7-33.7); MEAN CELL VOLUME 80.8 fl (80-96); MEAN PLT VOLUME 10.1 fl (7.5-11.1); PLATELET COUNT 126 10^3/uL (134-434); RDW 16.9 % (11.9-15.9); WHITE BLOOD COUNT 9.9 K/mm3 (4.0-10.0)
[2024-09-12] MEDS: ERTAPENEM SODIUM 0.5 GM in SODIUM CHLORIDE 50 ML IVPB ONE (20:10)
[2024-09-12] MEDS: MELATONIN 5 MG TABLETS PO PRN (23:56)
[2024-09-13] MEDS: ceFAZolin 2 GRAM PREMIX BAG IVPB ONE
[2024-09-13 06:28] LABS: HEMATOCRIT 23.6 % (35.4-49); HEMOGLOBIN 7.8 GM/dL (11.7-16.9); MCH 26.9 pg (25.7-33.7); MCHC 33.2 g/dl (32.0-35.9); MEAN PLT VOLUME 9.8 fl (7.5-11.1); PLATELET COUNT 121 10^3/uL (134-434); RBC 2.91 M/mm3 (4.00-5.60); RDW 16.6 % (11.9-15.9); WHITE BLOOD COUNT 7.8 K/mm3 (4.0-10.0)
[2024-09-13 06:51] LABS: POTASSIUM 4.3 mmol/L (3.5-5.1)
[2024-09-13 06:55] LABS: ALBUMIN 2.2 g/dl (3.4-5.0)
[2024-09-13 07:00] LABS: BILIRUBIN,TOTAL 0.4 mg/dL (0.2-1); TOT PROT 5.7 g/dl (6.4-8.2)
[2024-09-13 07:26] LABS: BLOOD UREA NITROGEN 86.7 mg/dL (7-18)
[2024-09-13] MEDS ORDERED: LIDOCAINE HCL 1%, 10 MG/ML (20ML VIAL) ONE (10:56)
[2024-09-13] MEDS ORDERED: MIDAZOLAM HCL 2 MG/2 ML SINGLE DOSE VIAL ONE (11:35)
[2024-09-13] MEDS ORDERED: SODIUM CHLORIDE 250 ML IV PRN (11:47)
[2024-09-13] MEDS: ceFAZolin SODIUM 1 GM VIAL IVPB ONE (11:47)
[2024-09-13] MEDS: LIDOCAINE HCL 1%, 10 MG/ML (20ML VIAL) INF ONE ×3 (11:51)
[2024-09-13] MEDS: ERTAPENEM SODIUM 0.5 GM in SODIUM CHLORIDE 50 ML IVPB SCH (15:45)
[2024-09-14] MEDS: metoPROLOL SUCCINATE 25 MG TAB.SR.24H (FP) PO ONE (11:39)
[2024-09-14 13:17] LABS: HEMATOCRIT 22.9 % (35.4-49); HEMOGLOBIN 7.5 GM/dL (11.7-16.9); MCH 26.5 pg (25.7-33.7); MCHC 32.8 g/dl (32.0-35.9); MEAN CELL VOLUME 80.8 fl (80-96); MEAN PLT VOLUME 9.9 fl (7.5-11.1); PLATELET COUNT 121 10^3/uL (134-434); RBC 2.83 M/mm3 (4.00-5.60); RDW 17.1 % (11.9-15.9); WHITE BLOOD COUNT 6.6 K/mm3 (4.0-10.0)
[2024-09-14] MEDS: EPOETIN ALFA-EPBX 10,000 UNIT/ML VIAL SQ ONE (13:29)
[2024-09-14 13:37] LABS: CHLORIDE 99 mmol/L (98-107); POTASSIUM 4.2 mmol/L (3.5-5.1); SODIUM 135 mmol/L (136-145)
[2024-09-14 13:40] LABS: ALBUMIN 2.1 g/dl (3.4-5.0); ANION GAP 13 mmol/L (4-13); CALCIUM 8.2 mg/dL (8.5-10.1); CO2 23 mmol/L (21-32); GLUCOSE,RANDOM 149 mg/dL (74-106)
[2024-09-14 13:42] LABS: BLOOD UREA NITROGEN 106.4 mg/dL (7-18); SGOT/AST 35 U/L (15-37); SGPT/ALT 17 U/L (13-61)
[2024-09-14 13:44] LABS: BILIRUBIN,TOTAL 0.3 mg/dL (0.2-1); TOT PROT 6.4 g/dl (6.4-8.2)
[2024-09-14 13:45] LABS: ALK PHOS 63 U/L (45-117)
[2024-09-14 13:48] LABS: CREATININE 8.1 mg/dL (0.55-1.3)
[2024-09-14] MEDS: METOPROLOL TARTRATE 25 MG TABLET (FP) PO ONE (22:55)
[2024-09-15] MEDS: APIXABAN 2.5 MG TABLET PO SCH (11:00)
[2024-09-15] MEDS: metoPROLOL SUCCINATE 25 MG TAB.SR.24H (FP) PO SCH (11:00)
[2024-09-15 11:58] VITALS: BMI 28.5
[2024-09-15] MEDS: IRON SUCROSE INJECTION 100 MG in SODIUM CHLORIDE 95 ML IVPB ONE (13:31)
[2024-09-16] MEDS ORDERED: SODIUM CHLORIDE 250 ML IV PRN (07:59)
[2024-09-16] MEDS: EPOETIN ALFA-EPBX 10,000 UNIT, EPOETIN ALFA-EPBX 2,000 UNIT SQ ONE (09:16)
[2024-09-16 09:27] LABS: HEMATOCRIT 25.3 % (35.4-49); HEMOGLOBIN 8.2 GM/dL (11.7-16.9); MCH 26.7 pg (25.7-33.7); MCHC 32.4 g/dl (32.0-35.9); MEAN CELL VOLUME 82.4 fl (80-96); MEAN PLT VOLUME 9.9 fl (7.5-11.1); PLATELET COUNT 134 10^3/uL (134-434); RBC 3.07 M/mm3 (4.00-5.60); RDW 17.1 % (11.9-15.9); WHITE BLOOD COUNT 14.2 K/mm3 (4.0-10.0)
[2024-09-16 09:51] LABS: POTASSIUM 4.3 mmol/L (3.5-5.1)
[2024-09-16 09:52] LABS: CALCIUM 7.9 mg/dL (8.5-10.1)
[2024-09-16 09:53] LABS: BLOOD UREA NITROGEN 88.6 mg/dL (7-18)
[2024-09-16 09:56] LABS: CREATININE 7.3 mg/dL (0.55-1.3)
[2024-09-16] MEDS ORDERED: EPOETIN ALFA-EPBX 10,000 UNIT/ML VIAL SQ ONE (11:09)
[2024-09-16 11:41] LABS: ANISOCYTOSIS 1+; MACROCYTOSIS 0; OVALOCYTE 1+
[2024-09-16 12:38] LABS: BASO % 0.2 % (0-2.0); EOS % 0.1 % (0-4.5); HEMATOCRIT 26.7 % (35.4-49); HEMOGLOBIN 8.7 GM/dL (11.7-16.9); LYMPH % 3.5 % (8-40); MCH 26.6 pg (25.7-33.7); MCHC 32.7 g/dl (32.0-35.9); MEAN CELL VOLUME 81.5 fl (80-96); MEAN PLT VOLUME 9.8 fl (7.5-11.1); MONO % 13.5 % (3.8-10.2); NEUT % 82.7 % (42.8-82.8); PLATELET COUNT 144 10^3/uL (134-434); RBC 3.27 M/mm3 (4.00-5.60); RDW 16.8 % (11.9-15.9); WHITE BLOOD COUNT 16.1 K/mm3 (4.0-10.0)
[2024-09-16 16:27] LABS: EPI CELLS 1 /uL (0-25.1); HYALINE CASTS 0 /uL (0-3.1); URINE APPEARANCE CLOUDY; URINE BACTERIA 84 /uL (0-1359); URINE BILIRUBIN NEGATIVE (NEGATIVE); URINE COLOR DK YELLOW; URINE GLUCOSE (UA) NEGATIVE (NEGATIVE); URINE KETONE TRACE (NEGATIVE); URINE LEUK ESTERASE 3+ (NEGATIVE); URINE NITRITE NEGATIVE (NEGATIVE); URINE PROTEIN 2+ (NEGATIVE); URINE RBC 33 /uL (0-23.9); URINE UROBILINOGEN 0.2 mg/dL (0.2-1.0); URINE WBC 2420 /uL (0-25.8)
[2024-09-17 10:05] LABS: HEMATOCRIT 25.2 % (35.4-49); HEMOGLOBIN 8.1 GM/dL (11.7-16.9); MCH 26.8 pg (25.7-33.7); MCHC 32.2 g/dl (32.0-35.9); MEAN CELL VOLUME 83.3 fl (80-96); PLATELET COUNT 141 10^3/uL (134-434); RBC 3.02 M/mm3 (4.00-5.60); RDW 17.1 % (11.9-15.9); WHITE BLOOD COUNT 10.2 K/mm3 (4.0-10.0)
[2024-09-17 10:23] LABS: POTASSIUM 3.9 mmol/L (3.5-5.1)
[2024-09-17 10:25] LABS: ALBUMIN 2.1 g/dl (3.4-5.0); CALCIUM 7.5 mg/dL (8.5-10.1)
[2024-09-17 10:27] LABS: BLOOD UREA NITROGEN 56.2 mg/dL (7-18)
[2024-09-17 10:29] LABS: CREATININE 5.7 mg/dL (0.55-1.3)
[2024-09-17 10:30] LABS: BILIRUBIN,TOTAL 0.4 mg/dL (0.2-1); TOT PROT 5.9 g/dl (6.4-8.2)
[2024-09-17 10:57] LABS: ANISOCYTOSIS 0; MACROCYTOSIS 0; OVALOCYTE 1+
[2024-09-17] MEDS ORDERED: SODIUM CHLORIDE 250 ML IV PRN (17:35)
[2024-09-18 08:17] LABS: HEMATOCRIT 23.2 % (35.4-49); HEMOGLOBIN 7.6 GM/dL (11.7-16.9); MCH 26.9 pg (25.7-33.7); MCHC 32.9 g/dl (32.0-35.9); MEAN CELL VOLUME 81.6 fl (80-96); MEAN PLT VOLUME 9.7 fl (7.5-11.1); PLATELET COUNT 133 10^3/uL (134-434); RBC 2.85 M/mm3 (4.00-5.60); RDW 17.1 % (11.9-15.9); WHITE BLOOD COUNT 7.7 K/mm3 (4.0-10.0)
[2024-09-18 08:41] LABS: POTASSIUM 4.1 mmol/L (3.5-5.1)
[2024-09-18 08:45] LABS: CALCIUM 7.8 mg/dL (8.5-10.1)
[2024-09-18 08:46] LABS: BLOOD UREA NITROGEN 69.9 mg/dL (7-18)
[2024-09-18 08:50] LABS: BILIRUBIN,TOTAL 0.5 mg/dL (0.2-1); TOT PROT 5.7 g/dl (6.4-8.2)
[2024-09-18] MEDS: EPOETIN ALFA-EPBX 10,000 UNIT, EPOETIN ALFA-EPBX 2,000 UNIT IVPUSH ONE (11:06)
[2024-09-19] MEDS: SODIUM CHLORIDE 1,000 ML IV STA (09:05)
[2024-09-19 09:37] LABS: HEMATOCRIT 25.2 % (35.4-49); HEMOGLOBIN 8.1 GM/dL (11.7-16.9); MCH 26.5 pg (25.7-33.7); MCHC 32.1 g/dl (32.0-35.9); MEAN CELL VOLUME 82.8 fl (80-96); MEAN PLT VOLUME 9.6 fl (7.5-11.1); PLATELET COUNT 158 10^3/uL (134-434); RBC 3.04 M/mm3 (4.00-5.60); RDW 17.3 % (11.9-15.9); WHITE BLOOD COUNT 7.2 K/mm3 (4.0-10.0)
[2024-09-19 10:16] LABS: POTASSIUM 3.9 mmol/L (3.5-5.1)
[2024-09-19 10:18] LABS: ALBUMIN 1.9 g/dl (3.4-5.0)
[2024-09-19 10:19] LABS: MAGNESIUM 1.8 mg/dL (1.8-2.4)
[2024-09-19 10:20] LABS: BLOOD UREA NITROGEN 39.3 mg/dL (7-18)
[2024-09-19 10:21] LABS: CREATININE 4.8 mg/dL (0.55-1.3)
[2024-09-19 10:22] LABS: PHOSPHOROUS 4.2 mg/dL (2.5-4.9)
[2024-09-19 10:23] LABS: BILIRUBIN,TOTAL 0.4 mg/dL (0.2-1); TOT PROT 5.3 g/dl (6.4-8.2)
[2024-09-19 11:54] LABS: ANISOCYTOSIS 1+; MACROCYTOSIS 0
[2024-09-19] MEDS: APIXABAN 2.5 MG TABLET PO SCH (21:44)
[2024-09-20] MEDS: METOPROLOL TARTRATE 5 MG/5 ML VIAL IVPUSH PRN ×2 (09:09→16:56)
[2024-09-20] MEDS: HEPARIN NA (PORCINE) 5,000 UNITS/ML 1ML VIAL IVPUSH ONE (10:00)
[2024-09-20 10:15] LABS: BASO % 0.3 % (0-2.0); EOS % 0.3 % (0-4.5); HEMOGLOBIN 7.8 GM/dL (11.7-16.9); LYMPH % 12.7 % (8-40); MCH 26.7 pg (25.7-33.7); MCHC 32.5 g/dl (32.0-35.9); MEAN CELL VOLUME 82.3 fl (80-96); MEAN PLT VOLUME 9.7 fl (7.5-11.1); MONO % 14.1 % (3.8-10.2); NEUT % 72.6 % (42.8-82.8); PLATELET COUNT 150 10^3/uL (134-434); RBC 2.92 M/mm3 (4.00-5.60); RDW 17.4 % (11.9-15.9); WHITE BLOOD COUNT 6.2 K/mm3 (4.0-10.0)
[2024-09-20] MEDS ORDERED: SODIUM CHLORIDE 250 ML IV PRN (10:26)
[2024-09-20] MEDS: EPOETIN ALFA-EPBX 10,000 UNIT, EPOETIN ALFA-EPBX 4,000 UNIT IVPUSH ONE (10:30)
[2024-09-20 10:53] LABS: POTASSIUM 4.1 mmol/L (3.5-5.1)
[2024-09-20 11:02] LABS: BILIRUBIN,TOTAL 0.4 mg/dL (0.2-1); BLOOD UREA NITROGEN 58.3 mg/dL (7-18); CALCIUM 7.6 mg/dL (8.5-10.1)
[2024-09-20 11:04] LABS: CREATININE 6.6 mg/dL (0.55-1.3); TOT PROT 5.8 g/dl (6.4-8.2)
[2024-09-20] MEDS: VITAMIN B COMP W-C 1 EA TABLET (NEPHRO-VITE) PO SCH (15:17)
[2024-09-20] MEDS: FAMOTIDINE 10 MG TABLET PO SCH (15:18)
[2024-09-20] MEDS: APIXABAN 2.5 MG TABLET PO SCH (15:18)
[2024-09-20] MEDS: METOPROLOL TARTRATE 25 MG TABLET (FP) PO ONE (15:25)
[2024-09-20] MEDS ORDERED: dilTIAZem HCL 50 MG/10 ML - 10 ML VIAL IVPUSH ONE (18:25)
[2024-09-20] MEDS: dilTIAZem HCL 30 MG TABLET PO ONE (18:45)
[2024-09-20 19:29] LABS: MAGNESIUM 2.2 mg/dL (1.8-2.4)
[2024-09-21] MEDS: EPOETIN ALFA-EPBX 10,000 UNIT/ML VIAL SQ ONE (00:25)
[2024-09-21] MEDS: METOPROLOL TARTRATE 25 MG TABLET (FP) PO ONE (00:27)
[2024-09-21] MEDS: SODIUM CHLORIDE 250 ML IV STA (00:27)
[2024-09-21] MEDS: METOPROLOL TARTRATE 50 MG TABLET (FP) PO ONE (00:27)
[2024-09-21 00:57] LABS: CALCIUM 7.1 mg/dL (8.5-10.1)
[2024-09-21 00:58] LABS: MAGNESIUM 1.8 mg/dL (1.8-2.4)
[2024-09-21 01:01] LABS: CREATININE 4.2 mg/dL (0.55-1.3); PHOSPHOROUS 3.1 mg/dL (2.5-4.9)
[2024-09-21 01:16] LABS: BLOOD UREA NITROGEN 32.4 mg/dL (7-18)
[2024-09-21] MEDS ORDERED: SODIUM CHLORIDE 250 ML IV PRN (09:24)
[2024-09-21] MEDS ORDERED: metoPROLOL SUCCINATE 25 MG TAB.SR.24H (FP) PO SCH ×2 (10:00)
[2024-09-21] MEDS: DIGOXIN 0.25 MG TABLET PO ONE ×3 (10:15→21:23)
[2024-09-21] MEDS: METOPROLOL TARTRATE 50 MG TABLET (FP) PO SCH (11:05)
[2024-09-21] MEDS: EPOETIN ALFA-EPBX 10,000 UNIT/ML VIAL IVPUSH ONE (11:14)
[2024-09-21] MEDS ORDERED: DIGOXIN 0.25 MG TABLET PO ONE (15:00)
[2024-09-21] MEDS: METOPROLOL TARTRATE 25 MG TABLET (FP) PO SCH (21:22)
[2024-09-22] MEDS ORDERED: DIGOXIN 0.25 MG TABLET PO ONE (04:00)
[2024-09-22 08:35] LABS: HEMATOCRIT 24.1 % (35.4-49); HEMOGLOBIN 7.7 GM/dL (11.7-16.9); MCH 26.6 pg (25.7-33.7); MCHC 32.1 g/dl (32.0-35.9); MEAN PLT VOLUME 9.9 fl (7.5-11.1); PLATELET COUNT 155 10^3/uL (134-434); RDW 17.7 % (11.9-15.9); WHITE BLOOD COUNT 7.9 K/mm3 (4.0-10.0)
[2024-09-22 08:58] LABS: BLOOD UREA NITROGEN 56.1 mg/dL (7-18); CALCIUM 7.7 mg/dL (8.5-10.1)
[2024-09-22 09:02] LABS: CREATININE 6.7 mg/dL (0.55-1.3)
[2024-09-22 09:03] LABS: BILIRUBIN,TOTAL 0.6 mg/dL (0.2-1); TOT PROT 5.5 g/dl (6.4-8.2)
[2024-09-22] MEDS ORDERED: EPOETIN ALFA-EPBX 10,000 UNIT/ML VIAL SQ ONE (09:24)
[2024-09-22] MEDS ORDERED: EPOETIN ALFA-EPBX 10,000 UNIT, EPOETIN ALFA-EPBX 4,000 UNIT IVPUSH ONE (09:30)
[2024-09-22] MEDS: EPOETIN ALFA-EPBX 10,000 UNIT, EPOETIN ALFA-EPBX 4,000 UNIT SQ ONE (12:08)
[2024-09-22] MEDS: IRON SUCROSE INJECTION 100 MG in SODIUM CHLORIDE 95 ML IVPB ONE (13:25)
[2024-09-23 09:45] LABS: BASO % 0.5 % (0-2.0); EOS % 0.3 % (0-4.5); HEMATOCRIT 24.2 % (35.4-49); HEMOGLOBIN 7.9 GM/dL (11.7-16.9); LYMPH % 13.7 % (8-40); MCH 26.8 pg (25.7-33.7); MCHC 32.6 g/dl (32.0-35.9); MEAN CELL VOLUME 82.1 fl (80-96); MEAN PLT VOLUME 9.2 fl (7.5-11.1); MONO % 18.7 % (3.8-10.2); NEUT % 66.8 % (42.8-82.8); PLATELET COUNT 149 10^3/uL (134-434); RBC 2.94 M/mm3 (4.00-5.60); RDW 17.6 % (11.9-15.9); WHITE BLOOD COUNT 6.5 K/mm3 (4.0-10.0)
[2024-09-23 10:48] LABS: POTASSIUM 4.3 mmol/L (3.5-5.1)
[2024-09-23 10:50] LABS: BLOOD UREA NITROGEN 37.7 mg/dL (7-18); CALCIUM 7.9 mg/dL (8.5-10.1)
[2024-09-23 10:53] LABS: CREATININE 5.1 mg/dL (0.55-1.3)
[2024-09-25 09:52] LABS: HEMOGLOBIN 7.5 GM/dL (11.7-16.9); MCH 26.5 pg (25.7-33.7); MCHC 32.7 g/dl (32.0-35.9); MEAN CELL VOLUME 80.9 fl (80-96); MEAN PLT VOLUME 9.1 fl (7.5-11.1); PLATELET COUNT 172 10^3/uL (134-434); RBC 2.85 M/mm3 (4.00-5.60); RDW 17.9 % (11.9-15.9); WHITE BLOOD COUNT 9.3 K/mm3 (4.0-10.0)
[2024-09-25 10:02] LABS: CHLORIDE 100 mmol/L (98-107); POTASSIUM 4.9 mmol/L (3.5-5.1); SODIUM 138 mmol/L (136-145)
[2024-09-25 10:03] LABS: ANION GAP 10 mmol/L (4-13); CALCIUM 7.6 mg/dL (8.5-10.1); CO2 27 mmol/L (21-32)
[2024-09-25 10:04] LABS: GLUCOSE,RANDOM 127 mg/dL (74-106)
[2024-09-25 10:05] LABS: BLOOD UREA NITROGEN 77.8 mg/dL (7-18)
[2024-09-25 10:08] LABS: CREATININE 8.3 mg/dL (0.55-1.3)
[2024-09-25] MEDS: EPOETIN ALFA-EPBX 4,000 UNIT/ML VIAL SQ ONE (10:40)
[2024-09-25] MEDS ORDERED: SODIUM CHLORIDE 250 ML IV PRN (11:37)
[2024-09-25 22:48] VITALS: BP 114/57; PULSE 90; RESP 18; TEMP 99.4
== END 2024-09-25 23:45 | DRG 291 ==
LOC: JER 22:31 → JERBED 09-08 02:08 → OBSVTOIN 09-08 11:21 → J4S 09-09 00:28
PROVIDERS: ADMIT Internal Medicine; ATTEND Internal Medicine
PROC: 0JH63XZ Insertion of Tunneled Vascular Access Device into Chest Subcutaneous Tissue and Fascia, Percutaneous Approach (ICD-10-PCS; principal; 2024-09-08)
PROC: 05HM33Z Insertion of Infusion Device into Right Internal Jugular Vein, Percutaneous Approach (ICD-10-PCS; 2024-09-08)
PROC: B543ZZA Ultrasonography of Right Jugular Veins, Guidance (ICD-10-PCS; 2024-09-08)
PROC: 06HM33Z Insertion of Infusion Device into Right Femoral Vein, Percutaneous Approach (ICD-10-PCS; 2024-09-08)
PROC: B54BZZA Ultrasonography of Right Lower Extremity Veins, Guidance (ICD-10-PCS; 2024-09-08)
PROC: 30233N1 Transfusion of Nonautologous Red Blood Cells into Peripheral Vein, Percutaneous Approach (ICD-10-PCS; 2024-09-08)
DX: I13.2 Hypertensive heart and chronic kidney disease with heart failure and with stage 5 chronic kidney disease, or end stage renal disease (principal); N18.6 End stage renal disease; E44.0 Moderate protein-calorie malnutrition; N39.0 Urinary tract infection, site not specified; I24.89 Other forms of acute ischemic heart disease; E87.20 Acidosis, unspecified; N17.9 Acute kidney failure, unspecified; I50.32 Chronic diastolic (congestive) heart failure; N40.0 Benign prostatic hyperplasia without lower urinary tract symptoms; B96.1 Klebsiella pneumoniae [K. pneumoniae] as the cause of diseases classified elsewhere; E83.39 Other disorders of phosphorus metabolism; I48.0 Paroxysmal atrial fibrillation; D63.1 Anemia in chronic kidney disease; I44.0 Atrioventricular block, first degree; E11.22 Type 2 diabetes mellitus with diabetic chronic kidney disease; Z99.2 Dependence on renal dialysis; Z96.641 Presence of right artificial hip joint
CPT/HCPCS: 36415; 36430; 36600; 71045-TC-FY; 71046-TC-FY; 76000-TC-FY; 76705-TC; 76775-TC; 80048; 80053; 80162; 81003; 82272; 82803; 82962; 83605; 83690; 83735; 84100; 84484; 85025; 85027; 85610; 85730; 86704; 86708; 86803; 86850; 86900; 86901; 86922; 87040; 87086; 87186; 87340; 87517; 87522; 87635; 93005; 93010; 97116-GP; 97161-GP; 99285-25; C1750; G0378; J0131; J1644; J1756; P9058; Q5106

== ENCOUNTER 2024-10-11 17:22 | Inpatient (IN) | payer OTHER, BC ==
[2024-10-11 17:55] VITALS: BMI 28.1
[2024-10-11 19:02] LABS: BASO % 0.2 % (0-2.0); EOS % 0.2 % (0-4.5); HEMATOCRIT 23.7 % (35.4-49); HEMOGLOBIN 7.6 GM/dL (11.7-16.9); LYMPH % 9.9 % (8-40); MCH 25.1 pg (25.7-33.7); MCHC 31.9 g/dl (32.0-35.9); MEAN CELL VOLUME 78.6 fl (80-96); MEAN PLT VOLUME 7.7 fl (7.5-11.1); MONO % 10.4 % (3.8-10.2); NEUT % 79.3 % (42.8-82.8); PLATELET COUNT 98 10^3/uL (134-434); RBC 3.02 M/mm3 (4.00-5.60); RDW 19.3 % (11.9-15.9); WHITE BLOOD COUNT 11.6 K/mm3 (4.0-10.0)
[2024-10-11 19:09] LABS: INR 1.31 (0.83-1.09)
[2024-10-11 19:12] LABS: ACTIVATED PTT 33.1 SECONDS (25.2-36.5)
[2024-10-11 19:26] LABS: POTASSIUM 3.6 mmol/L (3.5-5.1)
[2024-10-11 19:29] LABS: ALBUMIN 2.2 g/dl (3.4-5.0); BLOOD UREA NITROGEN 63.7 mg/dL (7-18)
[2024-10-11 19:32] LABS: CREATININE 5.2 mg/dL (0.55-1.3); PHOSPHOROUS 3.6 mg/dL (2.5-4.9)
[2024-10-11 19:34] LABS: BILIRUBIN,TOTAL 0.5 mg/dL (0.2-1); TOT PROT 6.1 g/dl (6.4-8.2)
[2024-10-11] MEDS ORDERED: ASPIRIN 81 MG CHEWABLE TABLETS ONE (22:29)
[2024-10-11] MEDS: ASPIRIN 81 MG CHEWABLE TABLETS PO ONE (22:32)
[2024-10-11] MEDS ORDERED: HEPARIN INFUSION - 25,000 UNITS/500 ML INFUS.BAG IVPB ONE (22:55)
[2024-10-11] MEDS ORDERED: HEPARIN NA (PORCINE) 5,000 UNITS/ML 1ML VIAL ONE (22:55)
[2024-10-11] MEDS: HEPARIN NA (PORCINE) 5,000 UNITS/ML 1ML VIAL IVPUSH ONE (23:06)
[2024-10-11] MEDS: HEPARIN INFUSION - 25,000 UNITS/500 ML INFUS.BAG IVPB SCH (23:06)
[2024-10-12] MEDS ORDERED: MELATONIN 5 MG TABLETS ONE (01:12)
[2024-10-12] MEDS: MELATONIN 5 MG TABLETS PO ONE (01:15)
[2024-10-12 06:29] LABS: BASO % 0.4 % (0-2.0); EOS % 0.3 % (0-4.5); HEMOGLOBIN 7.4 GM/dL (11.7-16.9); LYMPH % 13.6 % (8-40); MCH 25.5 pg (25.7-33.7); MCHC 32.1 g/dl (32.0-35.9); MEAN CELL VOLUME 79.4 fl (80-96); MEAN PLT VOLUME 8.2 fl (7.5-11.1); MONO % 11.5 % (3.8-10.2); NEUT % 74.2 % (42.8-82.8); PLATELET COUNT 97 10^3/uL (134-434); RBC 2.89 M/mm3 (4.00-5.60); RDW 19.1 % (11.9-15.9); WHITE BLOOD COUNT 8.9 K/mm3 (4.0-10.0)
[2024-10-12 06:30] LABS: POTASSIUM 3.7 mmol/L (3.5-5.1)
[2024-10-12 06:35] LABS: ALBUMIN 2.2 g/dl (3.4-5.0); CALCIUM 7.9 mg/dL (8.5-10.1)
[2024-10-12 06:38] LABS: CREATININE 5.5 mg/dL (0.55-1.3)
[2024-10-12 06:39] LABS: BILIRUBIN,TOTAL 0.6 mg/dL (0.2-1); TOT PROT 5.8 g/dl (6.4-8.2)
[2024-10-12] MEDS ORDERED: TAMSULOSIN HCL 0.4 MG CAP ONE (09:09)
[2024-10-12] MEDS: TAMSULOSIN HCL 0.4 MG CAP PO SCH (09:11)
[2024-10-12] MEDS ORDERED: METOPROLOL TARTRATE 25 MG TABLET (FP) ONE (10:14)
[2024-10-12] MEDS ORDERED: FAMOTIDINE 10 MG TABLET ONE (10:14)
[2024-10-12] MEDS ORDERED: APIXABAN 2.5 MG TABLET ONE (10:14)
[2024-10-12] MEDS: FAMOTIDINE 10 MG TABLET PO SCH (10:18)
[2024-10-12] MEDS: APIXABAN 2.5 MG TABLET PO SCH (10:18)
[2024-10-12] MEDS: METOPROLOL TARTRATE 25 MG TABLET (FP) PO SCH (10:18)
[2024-10-12] MEDS: VITAMIN B COMP W-C 1 EA TABLET (NEPHRO-VITE) PO SCH (11:49)
[2024-10-12] MEDS: ATORVASTATIN CA 40 MG TABLET (FP) PO SCH (22:14)
[2024-10-12] MEDS: MELATONIN 5 MG TABLETS PO PRN (23:23)
[2024-10-13 09:35] LABS: HEMATOCRIT 21.2 % (35.4-49); MCH 25.3 pg (25.7-33.7); MEAN PLT VOLUME 9.1 fl (7.5-11.1); PLATELET COUNT 119 10^3/uL (134-434); RBC 2.69 M/mm3 (4.00-5.60); RDW 19.1 % (11.9-15.9); WHITE BLOOD COUNT 6.8 K/mm3 (4.0-10.0)
[2024-10-13] MEDS ORDERED: SODIUM CHLORIDE 250 ML IV PRN (09:44)
[2024-10-13 09:55] LABS: HEMOGLOBIN 6.8 GM/dL (11.7-16.9)
[2024-10-13 10:00] LABS: POTASSIUM 3.5 mmol/L (3.5-5.1)
[2024-10-13 10:05] LABS: BLOOD UREA NITROGEN 78.3 mg/dL (7-18)
[2024-10-13 10:08] LABS: CREATININE 6.9 mg/dL (0.55-1.3)
[2024-10-13 10:09] LABS: BILIRUBIN,TOTAL 0.5 mg/dL (0.2-1)
[2024-10-13 10:10] LABS: TOT PROT 6.3 g/dl (6.4-8.2)
[2024-10-13] MEDS: EPOETIN ALFA-EPBX 10,000 UNIT/ML VIAL IVPUSH ONE (11:00)
[2024-10-13] MEDS: ISOSORBIDE MONONITRATE 30 MG TAB.SR.24H (FP) PO SCH (13:18)
[2024-10-13] MEDS: SENNOSIDES 8.8 MG/5 ML SYRUP PO ONE (21:57)
[2024-10-13] MEDS: FUROSEMIDE 40 MG/4 ML INJECTABLE VIAL IVPUSH ONE (21:58)
[2024-10-13] MEDS: DOCUSATE SODIUM 100 MG CAPSULE (FP) PO ONE (21:58)
[2024-10-13] MEDS: ACETAMINOPHEN 325 MG TABLET (FP) PO PRN (21:59)
[2024-10-14 03:23] LABS: URINE APPEARANCE TURBID; URINE BILIRUBIN NEGATIVE (NEGATIVE); URINE COLOR YELLOW; URINE GLUCOSE (UA) NEGATIVE (NEGATIVE); URINE KETONE NEGATIVE (NEGATIVE); URINE LEUK ESTERASE 3+ (NEGATIVE); URINE NITRITE NEGATIVE (NEGATIVE); URINE PROTEIN 3+ (NEGATIVE)
[2024-10-14] MEDS ORDERED: NITROGLYCERIN SUBLINGUAL 1/150 0.4 MG TAB ONE (08:31)
[2024-10-14] MEDS: METOPROLOL TARTRATE 5 MG/5 ML VIAL IVPUSH ONE (08:58)
[2024-10-14] MEDS: NITROGLYCERIN SUBLINGUAL 1/150 0.4 MG TAB SL ONE (08:58)
[2024-10-14 09:48] LABS: HEMATOCRIT 27.7 % (35.4-49); HEMOGLOBIN 9.2 GM/dL (11.7-16.9); MCH 26.8 pg (25.7-33.7); MCHC 33.1 g/dl (32.0-35.9); MEAN CELL VOLUME 81.1 fl (80-96); MEAN PLT VOLUME 8.8 fl (7.5-11.1); PLATELET COUNT 140 10^3/uL (134-434); RBC 3.42 M/mm3 (4.00-5.60); WHITE BLOOD COUNT 7.9 K/mm3 (4.0-10.0)
[2024-10-14 10:06] LABS: POTASSIUM 3.8 mmol/L (3.5-5.1)
[2024-10-14 10:08] LABS: ALBUMIN 2.4 g/dl (3.4-5.0)
[2024-10-14 10:09] LABS: MAGNESIUM 1.9 mg/dL (1.8-2.4)
[2024-10-14 10:10] LABS: BLOOD UREA NITROGEN 34.3 mg/dL (7-18)
[2024-10-14 10:12] LABS: CREATININE 4.1 mg/dL (0.55-1.3); PHOSPHOROUS 3.3 mg/dL (2.5-4.9)
[2024-10-14 10:13] LABS: TOT PROT 6.6 g/dl (6.4-8.2)
[2024-10-14] MEDS: ASPIRIN 325 MG ENTERIC COATED TABLET (FP) PO ONE (10:38)
[2024-10-14] MEDS: POLYETHYLENE GLYCOL (HEALTHYLAX) 3350 17 GM PACKET PO SCH (16:34)
[2024-10-14] MEDS: CLOPIDOGREL BISULFATE 300 MG TABLET PO ONE (17:01)
[2024-10-14] MEDS ORDERED: HEPARIN NA (PORCINE) 5,000 UNITS/ML 1ML VIAL IVPUSH PRN ×4 (18:32→19:08)
[2024-10-14] MEDS ORDERED: HEPARIN INFUSION - 500 ML IV SCH ×2 (18:45)
[2024-10-14] MEDS: HEPARIN SOD,PORK IN 0.45% NACL 25,000 UNITS/500 ML INFUS.BAG IVPB SCH (19:43)
[2024-10-14] MEDS: HEPARIN NA (PORCINE) 5,000 UNITS/ML 1ML VIAL IVPUSH ONE (19:47)
[2024-10-15 07:28] LABS: HEMOGLOBIN 8.5 GM/dL (11.7-16.9); MCH 26.7 pg (25.7-33.7); MCHC 32.7 g/dl (32.0-35.9); MEAN CELL VOLUME 81.6 fl (80-96); MEAN PLT VOLUME 9.2 fl (7.5-11.1); PLATELET COUNT 146 10^3/uL (134-434); RBC 3.19 M/mm3 (4.00-5.60); RDW 19.5 % (11.9-15.9); WHITE BLOOD COUNT 7.2 K/mm3 (4.0-10.0)
[2024-10-15 08:05] LABS: POTASSIUM 3.7 mmol/L (3.5-5.1)
[2024-10-15 08:43] LABS: ALBUMIN 2.1 g/dl (3.4-5.0)
[2024-10-15 08:46] LABS: CREATININE 5.5 mg/dL (0.55-1.3)
[2024-10-15 08:48] LABS: BILIRUBIN,TOTAL 0.8 mg/dL (0.2-1); TOT PROT 5.8 g/dl (6.4-8.2)
[2024-10-15 08:51] LABS: MAGNESIUM 1.9 mg/dL (1.8-2.4); PHOSPHOROUS 3.6 mg/dL (2.5-4.9)
[2024-10-15] MEDS: ASPIRIN 81 MG CHEWABLE TABLETS PO SCH (09:54)
[2024-10-15] MEDS: CLOPIDOGREL BISULFATE 75 MG TABLET (FP) PO SCH (09:54)
[2024-10-15] MEDS ORDERED: SODIUM CHLORIDE 250 ML IV PRN (13:50)
[2024-10-15] MEDS: MEROPENEM-0.9% SODIUM CHLORIDE 500 MG/50 ML BAG IVPB SCH (14:47)
[2024-10-15 20:42] VITALS: BP 137/60; PULSE 82; RESP 17; TEMP 97.7
[2024-10-15] MEDS ORDERED: NITROGLYCERIN SUBLINGUAL 1/150 0.4 MG TAB SL SCH (22:00)
[2024-10-16] MEDS ORDERED: EPOETIN ALFA-EPBX 10,000 UNIT/ML VIAL SQ ONE (13:50)
[2024-10-16] MEDS ORDERED: HEPARIN NA (PORCINE) 5,000 UNITS/ML 1ML VIAL IVPUSH ONE (13:50)
== END 2024-10-15 19:50 | disposition short-term general hospital (02) | DRG 280 ==
LOC: JER 17:22 → JERBED 10-12 01:17 → J4W 10-12 13:45
PROVIDERS: ADMIT Internal Medicine; ATTEND Internal Medicine
PROC: 5A1D70Z Performance of Urinary Filtration, Intermittent, Less than 6 Hours Per Day (ICD-10-PCS; principal; 2024-10-13)
PROC: 30233N1 Transfusion of Nonautologous Red Blood Cells into Peripheral Vein, Percutaneous Approach (ICD-10-PCS; 2024-10-13)
DX: I21.4 Non-ST elevation (NSTEMI) myocardial infarction (principal); N18.6 End stage renal disease; I48.20 Chronic atrial fibrillation, unspecified; I13.2 Hypertensive heart and chronic kidney disease with heart failure and with stage 5 chronic kidney disease, or end stage renal disease; I50.9 Heart failure, unspecified; E78.5 Hyperlipidemia, unspecified; D63.8 Anemia in other chronic diseases classified elsewhere; E11.22 Type 2 diabetes mellitus with diabetic chronic kidney disease; Z99.2 Dependence on renal dialysis; Z96.641 Presence of right artificial hip joint; Z86.73 Personal history of transient ischemic attack (TIA), and cerebral infarction without residual deficits
CPT/HCPCS: 36415; 36430; 71045-TC-FY; 80053; 80061; 81003; 82962; 83735; 84100; 84484; 85025; 85027; 85610; 85730; 86850; 86870; 86880; 86900; 86901; 86902; 86922; 87086; 87186; 93005; 93010; 99285-25; J1644; P9058; Q5106

== ENCOUNTER 2025-02-15 10:43 | Inpatient (IN) | payer OTHER, BC ==
[2025-02-15] MEDS ORDERED: ACETAMINOPHEN INJECTION 100 ML ONE (11:31)
[2025-02-15] MEDS: ACETAMINOPHEN 1000 MG/100 ML BAG IVPB ONE (11:45)
[2025-02-15 11:51] LABS: HEMATOCRIT 31.4 % (40.1-51.0); HEMOGLOBIN 9.4 g/dL (13.7-17.5); MCHC 29.9 g/dl (32.3-36.5); MEAN CELL VOLUME 98.4 fl (79.0-92.2); MEAN PLT VOLUME 10.7 fl (9.4-12.4); PLATELET COUNT 249 x10^3/uL (163-337); RDW 18.2 % (12.6-16.6)
[2025-02-15 11:56] VITALS: BMI 23.0
[2025-02-15 11:59] LABS: INR 1.05 (0.83-1.09); PROTHROMBIN TIME (PATIENT) 11.4 SEC (9.7-13.0)
[2025-02-15 12:02] LABS: ACTIVATED PTT 30.8 SECONDS (25.2-36.5); VENOUS BASE EXCESS -1.4 mmol/L (-2-2); VENOUS O2 SATURATION 65.4 % (70-80)
[2025-02-15 12:11] LABS: VENOUS PH 7.081 (7.310-7.410)
[2025-02-15 12:12] LABS: VENOUS PCO2 103.8 mmHg (38-52)
[2025-02-15 12:13] LABS: POTASSIUM 4.8 mmol/L (3.5-5.1)
[2025-02-15 12:15] LABS: ALBUMIN 2.4 g/dl (3.4-5.0)
[2025-02-15 12:16] LABS: CALCIUM 8.1 mg/dL (8.5-10.1)
[2025-02-15 12:17] LABS: MAGNESIUM 2.6 mg/dL (1.8-2.4)
[2025-02-15 12:19] LABS: CREATININE 5.3 mg/dL (0.55-1.3)
[2025-02-15 12:20] LABS: BILIRUBIN,TOTAL 0.8 mg/dL (0.2-1); TOT PROT 7.4 g/dl (6.4-8.2)
[2025-02-15 12:37] LABS: N-TERMINAL BNP 124238.5 pg/ml (5-450)
[2025-02-15 13:43] LABS: EPI CELLS 2.8 /uL (0-25.1); HYALINE CASTS 0 /uL (0-3.1); URINE APPEARANCE TURBID; URINE COLOR DK YELLOW; URINE RBC 64.5 /uL (0-23.9); URINE WBC 1978.5 /uL (0-25.8)
[2025-02-15 13:44] LABS: URINE BACTERIA 22650.4 /uL (0-1359)
[2025-02-15] MEDS ORDERED: PIPERACILLIN/TAZOB 4.5 GM 4.5 GM/100 ML BAG IVPB ONE (13:55)
[2025-02-15] MEDS: PIPERACILLIN/TAZOB 4.5 GM 4.5 GM in DEXTROSE 5%-WATER 100 ML IVPB ONE (13:58)
[2025-02-15] MEDS ORDERED: VANCOMYCIN/WATER 1250 MG 1,250 MG/250 ML BAG IVPB ONE (14:31)
[2025-02-15] MEDS: VANCOMYCIN/WATER 1250 MG 1,250 MG/250 ML BAG IVPB ONE (14:41)
[2025-02-15] MEDS: INSULIN ASPART SLIDING SCALE (NOVOLOG) 1 VIAL SQ SCH (16:56)
[2025-02-15] MEDS: SODIUM CHLORIDE 0.9% 1000 ML INFUS.BAG IV ONE (16:56)
[2025-02-15] MEDS ORDERED: EPOETIN ALFA-EPBX 10,000 UNIT/ML VIAL SQ ONE (17:26)
[2025-02-15] MEDS ORDERED: SODIUM CHLORIDE 250 ML IV PRN (17:26)
[2025-02-15] MEDS ORDERED: ALBUMIN HUMAN 25% 12.5 GM/50 ML VIAL IV SCH (17:30)
[2025-02-15] MEDS ORDERED: NOREPINEPHRINE BITARTRATE 4 MG/4 ML ML IV ONE (18:07)
[2025-02-15] MEDS: NOREPINEPHRINE 0.9 % NACL 8 MG/250 ML BAG IVPB SCH (19:57)
[2025-02-15 20:21] VITALS: BP 46/12; PULSE 28; RESP 12; TEMP 97.4
[2025-02-15] MEDS: SODIUM CHLORIDE 0.9% 500 ML INFUS.BAG IV ONE (20:22)
[2025-02-15] MEDS ORDERED: PIPERACILLIN/TAZOB 2.25 GM 2.25 GM in DEXTROSE 5%-WATER - 50 ML IVPB SCH (21:00)
[2025-02-15] MEDS ORDERED: PIPERACILLIN/TAZOB 2.25 GM 2.25 GM/50 ML BAG IVPB SCH (21:00)
[2025-02-15] MEDS ORDERED: CHLORHEXIDINE GLUCONATE 4% CLEANSER FOR DECOLONIZATION TP SCH ×2 (22:00)
[2025-02-15] MEDS ORDERED: INSULIN ASPART SLIDING SCALE (NOVOLOG) 1 VIAL SQ SCH (22:00)
[2025-02-15] MEDS ORDERED: MUPIROCIN 2% TOPICAL OINTMENT FOR DECOLONIZATION NS SCH ×3 (22:00)
== END 2025-02-15 21:35 | disposition expired | DRG 189 ==
LOC: JER 10:43 → JERBED 14:21 → JICU 16:04
PROVIDERS: ADMIT Internal Medicine; ATTEND Internal Medicine
DX: J96.02 Acute respiratory failure with hypercapnia (principal); G93.41 Metabolic encephalopathy; J18.9 Pneumonia, unspecified organism; N18.6 End stage renal disease; E87.29 Other acidosis; I24.89 Other forms of acute ischemic heart disease; I13.2 Hypertensive heart and chronic kidney disease with heart failure and with stage 5 chronic kidney disease, or end stage renal disease; I50.32 Chronic diastolic (congestive) heart failure; J90 Pleural effusion, not elsewhere classified; N17.9 Acute kidney failure, unspecified; J96.01 Acute respiratory failure with hypoxia; I48.91 Unspecified atrial fibrillation; D50.9 Iron deficiency anemia, unspecified; N40.0 Benign prostatic hyperplasia without lower urinary tract symptoms; E11.22 Type 2 diabetes mellitus with diabetic chronic kidney disease; I25.10 Atherosclerotic heart disease of native coronary artery without angina pectoris; E78.5 Hyperlipidemia, unspecified; D64.9 Anemia, unspecified; Z66 Do not resuscitate; Z96.641 Presence of right artificial hip joint
CPT/HCPCS: 0241U-QW; 36415; 36430; 70450-TC; 71045-TC-FY; 71250-TC; 80053; 81003; 82550; 82803; 82962; 83540; 83550; 83605; 83735; 83880; 84100; 84484; 85025; 85027; 85610; 85730; 86704; 86803; 86850; 86870; 86880; 86900; 86901; 86902; 86922; 87040; 87077; 87086; 87340; 87481; 87517; 87635; 93005; 93010; 99285-25; 99291; G0378; J0131; J1756; P9058; Q5106